=== PATIENT | female | born 1950 | race Caucasian/White ===

== ENCOUNTER 2020-01-22 14:41 | Outpatient (CLI) | payer MEDICARE, SELFPAY ==
--- NOTE | ~2020-01-22 | DEXA_ITS ---
Bone Density Report Name: Giselle Montoya Age: 69 Sex: Female Ethnicity: White Date of : 1950 Indication: postmenopausal; height loss; Referring Provider: Jyothi Schuler Study: Bone densitometry was performed. Exam Date: January 22, 2020 Accession number: [id number] Bone Density: Region BMD T-score Z-score Classification AP Spine (L1-L4) 1.328 2.6 4.5 Normal Femoral Neck (Left) 0.786 -0.6 1.1 Normal Total Hip (Left) 0.979 0.3 1.6 Normal Total Hip Bilateral Avg 0.940 0.0 1.3 Normal Femoral Neck (Right) 0.786 -0.6 1.1 Normal Total Hip (Right) 0.901 -0.3 1.0 Normal World Health Organization criteria for BMD impression classify patients as: Normal (T-score at or above -1.0), Osteopenia (T-score between -1.0 and -2.5), or Osteoporosis (T-score at or below -2.5). 10-year Fracture Risk: FRAX not reported because: All T-scores for Spine Total, Hip Total, Femoral Neck at or above -1.0 Clinical Information Provided by Patient: Has used the following medications: Calcium Patient maximum height was 68 Menopause Age: 52 No regular weight bearing exercise Drinks caffeinated beverages Onset of menses at age 16 Number of children 1 Impression: The patient has normal bone mass. Discussion: BONE DENSITY IS ABOVE THE MINIMUM DESIRABLE LEVEL AT ALL SKELETAL SITES TESTED. This patient?s bone mineral density is above the minimum desirable level (T-score -1.0 or better) at all sites measured. The patient should follow a healthful lifestyle (good nutrition with adequate calcium and vitamin D, and appropriate weight-bearing exercise). Follow-Up: Consider repeating this study in 5 years or sooner if there is some new clinical indication. Reported by: BHARAT on 01/22/2020 3:04:00 PM. Reviewed, dictated and finalized at location A.
--- NOTE | ~2020-01-22 | MM_ITS ---
EXAMINATION: MM screening mammo BI HISTORY: Screening mammogram TECHNIQUE: Craniocaudal and mediolateral oblique 3-D tomosynthesis images were obtained and synthetic 2-D images were generated. CAD analysis was submitted and interpreted. COMPARISON: Comparison to multiple prior studies sequentially, with oldest reviewed study dated 02/28. BREAST PARENCHYMAL COMPOSITION: Breast composed of scattered areas of fibroglandular density FINDINGS: There is no evidence of suspicious mass, calcification, or architectural distortion to sugg est malignancy in either breast. There has been no suspicious interval change. IMPRESSION: 1. No mammographic evidence of malignancy. 2. Recommend routine screening mammography in one year. BI-RADS Category 1: Negative Reviewed, dictated and finalized at location A.
== END 2020-01-22 14:42 | disposition home or self-care (01) ==
LOC: ANHIMG 14:44
PROVIDERS: PCP Internal Medicine; Visit Provider Nurse Practitioner
DX: Z12.31 Encounter for screening mammogram for malignant neoplasm of breast (principal); Z78.0 Asymptomatic menopausal state
CPT/HCPCS: 77067; 77080

== ENCOUNTER 2020-04-13 12:53 | Emergency (ER) | payer MEDICARE, SELFPAY ==
--- NOTE | ~2020-04-13 | CT_ITS ---
EXAMINATION: CT abdomen pelvis w con DATE: 04/13/2020 17:01 INDICATION: History of diverticulitis. TECHNIQUE: Computed tomography (CT) of the abdomen and pelvis was performed with 100 cc Omnipaque 350 intravenous contrast. The dose-length product was 470.70 mGy-cm. Automated exposure control and iter ative reconstruction technique were employed. COMPARISON: CT dated 03/01/2012 FINDINGS: There is acute diverticulitis descending colon with moderate surrounding phlegmonous change . No evidence for perforation or abscess. No free air. There is basilar atelectasis. Heart size normal. Small hiatal hernia. Status post appendectomy. Nonob structive bowel gas pattern. Gallbladder is present. Possible gallstones. Consider correlation with ultrasound. Small subcentimete r hypodensity of the left kidney, most likely benign cysts. Spleen, pancreas, adrenal glands and righ t kidney are unremarkable. Small fat-containing umbilical hernia. Moderate lower thoracic and lumbar spondylosis. There is atherosclerosis of the aorta without aneurysm. No lymphadenopathy. IMPRESSION: 1. Acute diverticulitis descending colon without perforation or abscess. There is moderate surroundin g phlegmonous change. Reviewed, dictated and finalized at location A. IMPRESSION: 1. Acute diverticulitis descending colon without perforation or abscess. There is moderate surrounding phlegmonous change.
[2020-04-13 13:14] VITALS: BP 170/68; PULSE 77; RESP 18; TEMP 36.6; O2SAT 100
[2020-04-13 13:30] LABS: Basophils Percent Auto 0.2 % (0.2-1.2); Eosinophils Absolute Auto 0.2 K/mm3 (0-0.3); Eosinophils Percent Auto 1.2 % (0-4.4); Hematocrit 31.6 % (37.0-47.0); Hemoglobin 10.5 g/dL (12.0-15.0); Immature Granulocyte Absolute 0.08 K/mm3 (0.00-0.031); Immature Granulocyte Percent A 0.6 % (0-0.5); Lymphocytes Absolute Auto 3.17 K/mm3 (0.9-3.2); Lymphocytes Percent Auto 22.6 % (18.3-44.2); Mean Corpuscular HGB Conc 33.2 g/dl (32-36); Mean Corpuscular Hemoglobin 28.3 pg (26-34); Mean Corpuscular Volume 85.2 fl (80-100); Monocytes Absolute Auto 1.4 K/mm3 (0.1-0.6); Monocytes Percent Auto 9.9 % (2.6-8.5); Neutrophils Absolute Auto 9.2 K/mm3 (1.3-6.7); Neutrophils Percent Auto 65.5 % (45.5-73.1); Platelet Count Result 244 k/mm3 (150-375); Red Blood Count 3.71 M/mm3 (4.2-5.4); Red Cell Distribution Width 14.6 % (11.5-14.5)
[2020-04-13 13:42] LABS: Alanine Aminotransferase 21 U/L (4-35); Albumin Level 4.1 g/dL (3.5-5.1); Alkaline Phosphatase 93 U/L (38-126); Anion Gap 6 mmol/L (8-16); Aspartate Amino Transferase 28 U/L (14-36); Blood Urea Nitrogen 13 mg/dL (7-17); Calcium 9.7 mg/dL (8.4-10.2); Carbon Dioxide 27 mmol/L (22-30); Chloride 100 mmol/L (98-107); Estimated CRCL calculation 63 ml/min; Estimated Glomerular Filt Rate > 60; Glucose 107 mg/dL (65-105); Lipase 73 U/L (23-300); Potassium 4.1 mmol/L (3.4-5.0); Sodium 133 mmol/L (137-145)
[2020-04-13 14:50] LABS: Add Urine Microscopic? NO; Appearance Urine Clear (Clear); Bilirubin Urine Negative (Negative); Blood Urine Negative (Negative); Color Urine Straw (Yellow); Glucose Urine UA Negative (Negative); Ketones Urine Negative (Negative); Leukocyte Esterase Ur Negative LEU/UL (Negative); Nitrate Urine Negative (Negative); Protein Urine Negative (Negative); Specific Grav Ur 1.008 (1.001-1.035); Urobilinogen Urine Negative mg/dL (<2.0)
--- NOTE | 2020-04-13 16:42 | ED.ABDPAIN ---
HPI - Abdominal Pain General Chief Complaint: Abdominal Pain Stated Complaint: flair of diverticulitis Time Seen by Provider: 04/13/20 16:22 Source: patient Mode of arrival: ambulatory Limitations: no limitations History of Present Illness HPI narrative: Patient is a 69-year-old female with a history of diverticulitis who presents for evaluation of left-sided abdominal pain. Patient reports a worsening 3-4 day history of left-sided abdominal pain and associated nausea. Pain is dull and aching in nature and feels similar to previous diverticulitis flares. She is not currently on any antibiotics. She denies fever or chills. She denies diarrhea, mucus or blood present in her stools. She has followed with a GI physician intermittently in [place], but is due for a colonoscopy and hasn't scheduled this yet. Related Data Home Medications Medication Instructions Recorded Confirmed amlodipine 2.5 mg tablet 2.5 mg PO DAILY 11/29/19 11/29/19 cholecalciferol (vitamin D3) 1,250 1,250 mcg PO .every other week cap 11/29/19 11/29/19 mcg (50,000 unit) capsule metformin 500 mg tablet 500 mg PO BID 11/29/19 11/29/19 fiber 04/13/20 niacin 1,000 mg PO HS 04/13/20 orlistat [Chilo] mg 04/13/20 Allergies Allergy/AdvReac Type Severity Reaction Status Date / Time No Known Allergies Allergy Unknown Verified 04/13/20 16:20 Review of Systems Review of Systems: Narrative: CONSTITUTIONAL: Denies fever CARDIOVASCULAR: Denies chest pain RESPIRATORY: Denies cough or dyspnea. GASTROINTESTINAL: Reports left lower quadrant abdominal pain SKIN: Denies rash MUSCULOSKELETAL: Denies back pain NEUROLOGIC: Denies headache [facility] Past Medical History Medical History (Updated 04/13/20 @ 17:15 by Denia Gil MD) Anemia, unspecified AVD (aortic valve disease) Essential (primary) hypertension Heart murmur Hypothyroidism, unspecified Type 2 diabetes mellitus without complication Family History Family History Father Family history of diabetes mellitus in first degree relative Family history of heart disease in male family member before age 55 Grandparent Family history of malignant neoplasm of breast Mother Family history of heart disease in male family member before age 55 Social History Social History Smoking status: Never smoker Alcohol intake: never Gender identity (if verbalized by the patient): Female Exam Narrative: Exam Narrative: GENERAL: Awake, alert, conversant HEAD: Normocephalic, atraumatic. EYES: PERRLA and EOMI. ENT: Nares clear, no rhinorrhea or epistaxis. Mucous membranes moist. NECK: Supple. CHEST: No respiratory distress, breathing even and non labored HEART: Regular rate, sinus rhythm ABDOMEN:Non distended, mild left lower quadrant tenderness, no rebound, no guarding EXTREMITIES: Normal range of motion. No edema. SKIN: Warm, dry, no rash. NEURO:No focal deficits. Alert and oriented x3 Course Vital Signs Vital signs: Vital Signs Temperature 36.6 C 04/13/20 13:14 Pulse Rate 77 04/13/20 13:14 Respiratory Rate 18 04/13/20 13:14 Blood Pressure 170/68 H 04/13/20 13:14 Pulse Oximetry 100 04/13/20 13:14 Temperature 36.6 C 04/13/20 13:14 Pulse Rate 77 04/13/20 13:14 Respiratory Rate 18 04/13/20 13:14 Blood Pressure 170/68 H 04/13/20 13:14 Pulse Oximetry 100 04/13/20 13:14 MDM - Abdominal Pain MDM Narrative Medical decision making narrative: Patient presenting for evaluation of left-sided abdominal pain that feels like previous flares of diverticulitis that she has had in the past. Patient denies fever, chills, vomiting, she has some had some mild nausea. She reports the pain is quite mild. Laboratory results show leukocytosis and CT scan shows evidence of diverticulitis without abscess or perforation. As patient is hemodynamically stable, tolerating oral in
[2020-04-13 17:32] VITALS: BP 153/71; PULSE 76; RESP 18; TEMP 36.9; O2SAT 100
== END 2020-04-13 17:34 | disposition home or self-care (01) ==
PROVIDERS: Family Medicine; Emergency Provider Emergency Medicine; PCP Internal Medicine
DX: K57.32 Diverticulitis of large intestine without perforation or abscess without bleeding (principal); D64.9 Anemia, unspecified; I35.8 Other nonrheumatic aortic valve disorders; I10 Essential (primary) hypertension; E03.9 Hypothyroidism, unspecified; E11.9 Type 2 diabetes mellitus without complications; Z79.84 Long term (current) use of oral hypoglycemic drugs
CPT/HCPCS: 36415; 74177; 80053; 81003; 83690; 85025; 99284; Q9967

== ENCOUNTER 2020-11-21 09:46 | Outpatient (CLI) | payer MEDICARE, SELFPAY | END 2020-11-21 09:47 | disposition home or self-care (01) | LOC: ANHCOVIDVC 09:46 | PROVIDERS: PCP Internal Medicine | DX: Z23 Encounter for immunization (principal) | CPT/HCPCS: 0001A; 91300 ==

== ENCOUNTER 2020-12-12 16:29 | Outpatient (CLI) | payer MEDICARE, SELFPAY | END 2020-12-12 16:30 | disposition home or self-care (01) | LOC: ANHCOVIDVC 16:29 | PROVIDERS: PCP Internal Medicine | DX: Z23 Encounter for immunization (principal) | CPT/HCPCS: 0002A; 91300 ==

== ENCOUNTER → 2021-01-23 10:09 | Outpatient (CLI) | payer MEDICARE, SELFPAY ==
--- NOTE | ~2021-01-23 | MM_ITS ---
EXAMINATION: MM screening maryellen BI w maxine HISTORY: Screening mammogram TECHNIQUE: Craniocaudal and mediolateral oblique 3-D tomosynthesis images were obtained and synthetic 2-D images were generated. CAD analysis was submitted and interpreted. COMPARISON: 01/22/2020, 04/27/2018, 04/07/2017 bilateral digital screening mammogram examinations BREAST PARENCHYMAL COMPOSITION: The breasts are almost entirely fatty. FINDINGS: There is no evidence of suspicious mass, calcification, or architectural distortion to sugg est malignancy in either breast. There has been no suspicious interval change. IMPRESSION: 1. No mammographic evidence of malignancy. 2. Recommend routine screening mammography in one year. BI-RADS Category 1: Negative Reviewed, dictated and finalized at location A.
== END ==
PROVIDERS: PCP Internal Medicine; Visit Provider Nurse Practitioner
DX: Z12.31 Encounter for screening mammogram for malignant neoplasm of breast (principal)
CPT/HCPCS: 77063; 77067

== ENCOUNTER → 2021-05-29 08:24 | Outpatient (CLI) | payer MEDICARE, SELFPAY ==
--- NOTE | ~2021-05-29 | XR_ITS ---
XR knee RT 3V DATE: 05/29/2021 09:09 INDICATION: Right knee pain TECHNIQUE: Salvo and standing AP and lateral views COMPARISON: None FINDINGS: There is diffuse osteopenia. There is mild periarticular spurring of the knee and prominent loss of medial compartment joint space, consistent with tricompartment osteoarthritis, most severe a t the medial compartment. No fracture or dislocation. Mild joint effusion is suggested. No periosteal reaction or bone destruction. No radiopaque intra-articular loose body or chondrocalcin osis. Arterial calcification is noted. 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
== END ==
PROVIDERS: PCP Internal Medicine; Visit Provider Internal Medicine
DX: M25.569 Pain in unspecified knee (principal); M17.11 Unilateral primary osteoarthritis, right knee; M85.861 Other specified disorders of bone density and structure, right lower leg
CPT/HCPCS: 73562

== ENCOUNTER 2021-08-22 10:05 | Emergency (ER) | payer OTHER, MEDICARE, SELFPAY ==
--- NOTE | ~2021-08-22 | XR_ITS ---
EXAMINATION: [id number] DATE: 08/22/2021 11:51 INDICATION: Right rib pain post fall TECHNIQUE: A frontal inspiratory view of the chest and 3 views of the right ribs were obtained. COMPARISON: CT abdomen pelvis dated 04/13/20 FINDINGS: Mild angulation of the cortex at the anterior tip of the right eighth rib without evident correlate o n the prior CT which is suspicious for fracture. No other lesions suspicious for fracture identified Unchanged mild linear discoid atelectasis/scarring at the lingula. No new airspace opacities, pulmona ry edema, pleural effusion or pneumothorax. Heart size is normal. Amplatz type ASD closure device. Sl ight 3 component curvature of the thoracic and lumbar spine with moderate spondylosis. IMPRESSION: 1. Possible nondisplaced anterior right eighth rib fracture. Correlate for point tenderness at this l ocation. 2. Chronic mild discoid atelectasis/scarring at the lingula. No acute cardiopulmonary disease. Reviewed, dictated and finalized at location B. [facility] [employer] [employer] IMPRESSION: 1. Possible nondisplaced anterior right eighth rib fracture. Correlate for poin t tenderness at this location. 2. Chronic mild discoid atelectasis/scarring at the lingula. No acute cardiopul monary disease.
--- NOTE | ~2021-08-22 | XR_ITS ---
EXAMINATION: XR elbow LT min 3V, XR forearm LT 2V DATE: 08/22/2021 11:50 INDICATION: Left elbow and forearm pain post fall TECHNIQUE: 1. Anteroposterior, two oblique and lateral views of the left elbow were obtained. 2. Anteroposterior and lateral views of the left forearm were obtained. COMPARISON: None. FINDINGS: There is an intra-articular fracture at the head of the proximal left radius with approximately 3 mm depression of the fracture fragment. Difficult to assess the degree of involvement of the articular s urface, likely <25%. Left elbow joint effusion is present. No other fractures identified. Severe oste oarthritis at the first carpometacarpal joint. Tiny enthesophytes at the medial and lateral humeral e picondyles. IMPRESSION: 1. 3 mm depression of an intra-articular fracture involving a small portion of the head of the proxim al left radius with secondary left elbow joint effusion. Reviewed, dictated and finalized at location B. RETE MASON IMPRESSION: 1. 3 mm depression of an intra-articular fracture involving a small portion of the head of the proximal left radius with secondary left elbow joint effusion.
[2021-08-22 10:51] VITALS: BP 170/93; PULSE 77; RESP 18; TEMP 36.3; O2SAT 100
--- NOTE | 2021-08-22 11:24 | ED.UPPEXIN ---
HPI - Extremity Injury (Upper) General Chief Complaint: Extremity Injury, Upper Stated Complaint: lt arm injury,rt side pain Time Seen by Provider: 08/22/21 11:24 Source: patient, RN notes reviewed and old records reviewed Mode of arrival: ambulatory Limitations: no limitations History of Present Illness HPI narrative: 70-year-old female who presents to [facility] with complaints of sustaining a fall this morning at work around 0615 at [employer]. Patient states she tripped on cart and fell forward onto arms and chest. Patient denies any loss of consciousness denies hitting her head. Patient reports inability to straighten left arm with pain to left elbow area.She also reports pain to right lateral lower chest along ribs from fall. Patient denies any shortness of breath lungs have breath in all lung schafer noted. MD complaint: injury to: left, elbow and forearm Onset (ago): hour(s) (at 0615 this morning) Other injuries: chest (Right rib area) Handedness: right Place: work Related Data Home Medications Medication Instructions Recorded Confirmed niacin 1,000 mg PO HS 04/13/20 08/22/21 orlistat [Chilo] 60 mg PO DAILY 04/13/20 08/22/21 Allergies Allergy/AdvReac Type Severity Reaction Status Date / Time No Known Allergies Allergy Unknown Verified 08/22/21 10:50 Review of Systems Review of Systems: CONSTITUTIONAL: Denies fever, chills, or sweats. EYES: Denies visual changes, redness, or discharge. ENT: Denies rhinorrhea, congestion, sore throat, or otalgia. CARDIOVASCULAR: positive for right chest pain lateral lower rib area, no palpitations, or edema. RESPIRATORY: Denies cough or dyspnea. GASTROINTESTINAL: Denies abdominal pain, nausea, vomiting, or diarrhea. GENITOURINARY: Denies dysuria or hematuria. SKIN: Denies rash or itching. MUSCULOSKELETAL: Denies back pain, positive for left elbow joint pain, or myalgia. NEUROLOGIC: Denies headache, numbness, or weakness. PSYCHIATRIC: Denies anxiety or depression. All systems reviewed & are unremarkable except as noted in HPI and below PMFSH Past Medical History Medical History (Updated 08/22/21 @ 12:54 by Denia Wagoner NP) Anemia, unspecified AVD (aortic valve disease) Essential (primary) hypertension Heart murmur Hypothyroidism, unspecified Type 2 diabetes mellitus without complication Surgical History Surgical History (Updated 08/22/21 @ 22:31 by Denia Wagoner NP) History of Amplatzer atrial septal defect closure History of appendectomy S/P removal of left ovary Family History Family History Father Family history of diabetes mellitus in first degree relative Family history of heart disease in male family member before age 55 Grandparent Family history of malignant neoplasm of breast Mother Family history of heart disease in male family member before age 55 Social History Social History (Updated 08/22/21 @ 22:31 by Denia Wagoner NP) Smoking status: Never smoker Second hand tobacco smoke exposure: No Alcohol intake: never Substance use: never Living arrangements: with family Gender identity (if verbalized by the patient): Female Comments At time of signature, agree with nursing past medical, surgical, social and family history. There is no relevant family history pertinent to the presenting complaint Exam Narrative: GENERAL: Well-appearing, well-nourished, and in mild acute distress. HEAD: Normocephalic, atraumatic. EYES: PERRLA and EOMI. ENT: Nares clear, no rhinorrhea or epistaxis. Mucous membranes moist.TM's normal throat pink with no lesions exudates or tonsil swelling. NECK: Supple.no lymphadenopathy CHEST: Clear to auscultation. No respiratory distress.SAO2 100% on room air, palpable tenderness to right anterior-lateral chest region along ribs HEART: Regular rate and rhythm. No murmur heard. Normal peripheral pulses. ABDOMEN: Soft, nontender, nondistended, normal activ
== END 2021-08-22 12:56 | disposition home or self-care (01) ==
PROVIDERS: Emergency Provider Registered Nurse; PCP Internal Medicine
DX: S52.122A Displaced fracture of head of left radius, initial encounter for closed fracture (principal); S22.31XA Fracture of one rib, right side, initial encounter for closed fracture; W18.09XA Striking against other object with subsequent fall, initial encounter; I10 Essential (primary) hypertension; R01.1 Cardiac murmur, unspecified; E03.9 Hypothyroidism, unspecified; E11.9 Type 2 diabetes mellitus without complications; I35.9 Nonrheumatic aortic valve disorder, unspecified
CPT/HCPCS: 29105; 71101; 73080; 73090; 99214; A4565; G0463

== ENCOUNTER 2021-12-12 12:22 | Emergency (ER) | payer OTHER, MEDICARE, SELFPAY ==
[2021-12-12 12:38] VITALS: BP 166/68; PULSE 69; RESP 18; TEMP 36.1; O2SAT 100
--- NOTE | 2021-12-12 13:39 | ED.HEATRA ---
HPI - Head Injury General Chief complaint: Fall Stated complaint: fall Time Seen by Provider: 12/12/21 12:29 Source: patient Mode of arrival: ambulatory Limitations: no limitations History of Present Illness HPI Narrative: 71-year-old female presents to [facility] with complaints of falling and hitting her head on concrete at work 2 hours ago. Patient reports that she tripped over a pallet and fell hitting her forehead on concrete. 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 Patient does take aspirin daily. Patient reports a 3 out of 10 headache. Patient denies dizziness, blurred vision or neurological changes. MD Complaint: head injury Onset (ago): hour(s) (2) Place: work Loss of Consciousness: no Location of injury: frontal Radiation: none Context: on aspirin Related Data Home Medications Medication Instructions Recorded Confirmed amlodipine 5 mg PO DAILY 12/12/21 12/12/21 aspirin 81 mg PO DAILY 12/12/21 12/12/21 carvedilol 25 mg PO BID 12/12/21 12/12/21 cholecalciferol (vitamin D3) 1,250 mcg PO WEEKLY 12/12/21 12/12/21 famotidine 20 mg PO DAILY 12/12/21 12/12/21 ferrous sulfate [FeroSul] 325 mg PO DAILY 12/12/21 12/12/21 hydrochlorothiazide 25 mg PO DAILY 12/12/21 12/12/21 levothyroxine [Euthyrox] 88 mcg PO DAILY 12/12/21 12/12/21 lisinopril 40 mg PO DAILY 12/12/21 12/12/21 metformin 500 mg PO TID 12/12/21 12/12/21 simvastatin 20 mg PO DAILY 12/12/21 12/12/21 Allergies Allergy/AdvReac Type Severity Reaction Status Date / Time No Known Allergies Allergy Unknown Verified 12/12/21 13:40 Review of Systems Constitutional: Constitutional: Denies chills, Denies fever(s) and Denies weakness Cardiovascular: Cardiovascular: Denies chest pain Respiratory: Respiratory: Denies cough, Denies dyspnea and Denies wheezing Gastrointestinal: Gastrointestinal: Denies abdominal pain, Denies diarrhea, Denies nausea and Denies vomiting Neurologic: Comments: Headache, fell and hit head today at work 2 hours ago Endocrine: Endocrine: Denies fatigue [facility] Past Medical History Medical History Anemia, unspecified Atrophy of quadriceps femoris muscle AVD (aortic valve disease) Constipation Degenerative joint disease of knee Diarrhea Essential (primary) hypertension Frequency of urination Heart murmur High cholesterol Hypothyroidism, unspecified Type 2 diabetes mellitus without complication Vomiting Surgical History Surgical History History of Amplatzer atrial septal defect closure History of appendectomy S/P removal of left ovary Family History Family History Father Family history of diabetes mellitus in first degree relative Family history of heart disease in male family member before age 55 Grandparent Family history of malignant neoplasm of breast Mother Family history of heart disease in male family member before age 55 Other Diabetes mellitus Heart disease High cholesterol Hypertension Social History Social History Second hand tobacco smoke exposure: No Alcohol intake: never Substance use: never Additional occupation/education comments: [employer] Gender identity (if verbalized by the patient): Female Comments At time of signature, I agree with nursing past medical, surgical, social and family history. There is no relevant family history pertinent to the presenting complaint. Exam Const: General: no acute distress Nutritional Appearance: well nourished Orientation/consciousness: patient oriented x3 Eyes: Conjunctivae: conjunctivae normal Pupils: Equal, round and reactive pupils present Direct Ophthalmoscopy: no photophobia Neck: Neck: normal visual inspection Resp:
== END 2021-12-12 14:02 | disposition short-term general hospital (02) ==
PROVIDERS: Emergency Provider Nurse Practitioner Family; PCP Internal Medicine
DX: S09.90XA Unspecified injury of head, initial encounter (principal); W18.00XA Striking against unspecified object with subsequent fall, initial encounter; S00.83XA Contusion of other part of head, initial encounter; I10 Essential (primary) hypertension; R01.1 Cardiac murmur, unspecified; E78.00 Pure hypercholesterolemia, unspecified; E03.9 Hypothyroidism, unspecified; E11.9 Type 2 diabetes mellitus without complications
CPT/HCPCS: 99212; G0463

== ENCOUNTER 2021-12-12 14:22 | Emergency (ER) | payer OTHER, MEDICARE, SELFPAY ==
--- NOTE | ~2021-12-12 | CT_ITS ---
EXAMINATION: CT brain wo con INDICATION: Head injury COMPARISON: None TECHNIQUE: Standard unenhanced head CT. The dose-length product (DLP) was 605.33 mGy-cm. The mA was a djusted according to patient size. Iterative reconstruction technique was employed. FINDINGS: There is a small left frontal scalp hematoma. There is no acute intraparenchymal hemorrhage . No evidence of mass lesion. No evidence of acute infarction. There is mild periventricular and subc ortical hypodensity probably related to small vessel ischemic disease. There is mild prominence of th e sulci and ventricles related to cerebral atrophy. Intracranial calcified cerebral atherosclerosis i s noted. There are no extra-axial collections. There is no mass effect or midline shift. The orbits a re unremarkable. The visualized sinuses and mastoid air cells are well aerated. IMPRESSION: 1. Small left frontal scalp hematoma without acute intracranial abnormality. 2. Age related findings. Reviewed, dictated and finalized at location B.
--- NOTE | ~2021-12-12 | CT_ITS ---
EXAMINATION: CT cervical spine wo con DATE: 12/12/2021 15:27 INDICATION: Head injury TECHNIQUE: Computed tomography (CT) of the cervical spine was performed without intravenous contrast. The dose-length product (DLP) was 351.51 mGy-cm. Automated exposure control and iterative reconstruc tion technique were employed. COMPARISON: None FINDINGS: There are 2 mm of anterolisthesis of C3 on C4 and 2 mm of retrolisthesis of C4 on C5. There is moderate loss of intervertebral disc space height from C4-5 through C7-T1. The vertebral body hei ghts are maintained. There is no fracture. The odontoid is intact. The prevertebral soft tissues are unremarkable. There is moderate to severe multilevel facet and uncovertebral joint osteoarthritis. IMPRESSION: 1. Moderate cervical spondylosis without acute findings. Reviewed, dictated and finalized at location B.
[2021-12-12 14:30] VITALS: BP 165/61; PULSE 67; RESP 18; TEMP 36.4; O2SAT 100
--- NOTE | 2021-12-12 14:51 | ED.FALL ---
HPI - Fall General Chief Complaint: Fall Stated Complaint: fall at work, struck head, on asa Time Seen by Provider: 12/12/21 14:33 History of Present Illness HPI Narrative: 71-year-old female presents emergency room for evaluation of a head injury. Patient states that she was at [facility], when she tripped over a pallet food striking her head on the floor. Patient denies LOC, altered mental status, nausea and vomiting. Patient denies neck pain. Related Data Home Medications Medication Instructions Recorded Confirmed amlodipine 5 mg PO DAILY 12/12/21 12/12/21 aspirin 81 mg PO DAILY 12/12/21 12/12/21 carvedilol 25 mg PO BID 12/12/21 12/12/21 cholecalciferol (vitamin D3) 1,250 mcg PO WEEKLY 12/12/21 12/12/21 famotidine 20 mg PO DAILY 12/12/21 12/12/21 ferrous sulfate [FeroSul] 325 mg PO DAILY 12/12/21 12/12/21 hydrochlorothiazide 25 mg PO DAILY 12/12/21 12/12/21 levothyroxine [Euthyrox] 88 mcg PO DAILY 12/12/21 12/12/21 lisinopril 40 mg PO DAILY 12/12/21 12/12/21 metformin 500 mg PO TID 12/12/21 12/12/21 simvastatin 20 mg PO DAILY 12/12/21 12/12/21 Allergies Allergy/AdvReac Type Severity Reaction Status Date / Time No Known Allergies Allergy Unknown Verified 12/12/21 13:40 Review of Systems Review of Systems: CONSTITUTIONAL: Denies fever, chills, or sweats. EYES: Denies visual changes, redness, or discharge. ENT: Denies rhinorrhea, congestion, sore throat, or otalgia. CARDIOVASCULAR: Denies chest pain, palpitations, or edema. RESPIRATORY: Denies cough or dyspnea. GASTROINTESTINAL: Denies abdominal pain, nausea, vomiting, or diarrhea. GENITOURINARY: Denies dysuria or hematuria. SKIN: Denies rash or itching. MUSCULOSKELETAL: Denies back pain, joint pain, or myalgia. NEUROLOGIC: Denies headache, numbness, dizziness, or weakness. PSYCHIATRIC: Denies anxiety or depression. [facility] Past Medical History Medical History Anemia, unspecified Atrophy of quadriceps femoris muscle AVD (aortic valve disease) Constipation Degenerative joint disease of knee Diarrhea Essential (primary) hypertension Frequency of urination Heart murmur High cholesterol Hypothyroidism, unspecified Type 2 diabetes mellitus without complication Vomiting Surgical History Surgical History History of Amplatzer atrial septal defect closure History of appendectomy S/P removal of left ovary Family History Family History Father Family history of diabetes mellitus in first degree relative Family history of heart disease in male family member before age 55 Grandparent Family history of malignant neoplasm of breast Mother Family history of heart disease in male family member before age 55 Other Diabetes mellitus Heart disease High cholesterol Hypertension Social History Social History Second hand tobacco smoke exposure: No Alcohol intake: never Substance use: never Additional occupation/education comments: [employer] Gender identity (if verbalized by the patient): Female Exam Narrative: GENERAL: Well-appearing, well-nourished, and in no acute distress. HEAD: Normocephalic, hematoma to forehead EYES: PERRLA and EOMI. ENT: Nares clear, no rhinorrhea or epistaxis. Mucous membranes moist. Oropharynx without tonsillar hypertrophy exudate or other lesions. Bilateral TMs pearly causey nonbulging NECK: No midline tenderness, no bony abnormalities, no step-offs, full range of motion CHEST: Clear to auscultation. No respiratory distress. No wheezes rales or rhonchi HEART: Regular rate and rhythm. No murmur heard. Normal peripheral pulses. ABDOMEN: Soft, nontender, nondistended, normal active bowel sounds. EXTREMITIES: Normal range of motion. No edema. SKIN: Warm, dry, no rash. NEURO: No focal
== END 2021-12-12 16:24 | disposition home or self-care (01) ==
LOC: ANHED 16:01
PROVIDERS: Emergency Provider Nurse Practitioner Family; PCP Internal Medicine
DX: S00.83XA Contusion of other part of head, initial encounter (principal); E11.9 Type 2 diabetes mellitus without complications; I10 Essential (primary) hypertension; E78.00 Pure hypercholesterolemia, unspecified; I35.8 Other nonrheumatic aortic valve disorders; E03.9 Hypothyroidism, unspecified; M17.10 Unilateral primary osteoarthritis, unspecified knee; Z86.2 Personal history of diseases of the blood and blood-forming organs and certain disorders involving the immune mechanism; Z79.84 Long term (current) use of oral hypoglycemic drugs; Z79.82 Long term (current) use of aspirin; W18.09XA Striking against other object with subsequent fall, initial encounter
CPT/HCPCS: 70450; 72125; 99284

== ENCOUNTER 2022-01-16 00:25 | Day surgery (SDC) | payer MEDICARE, SELFPAY ==
[2021-12-30 12:47] VITALS: BMI 26.6
[2022-01-16 09:06] VITALS: BP 140/57; PULSE 72; RESP 18; TEMP 36.4; O2SAT 100
[2022-01-16] MEDS: LACTATED RINGERS 1,000 ML 150 ML IV CONT (09:14)
--- NOTE | 2022-01-16 09:24 | WPDGICN ---
Assessment and Plan Assessment and plan (1) Screening for colon cancer: Code(s): Z12.11 - Encounter for screening for malignant neoplasm of colon Status: Acute Assessment and Plan: Patient presents today for neoplasia screening colonoscopy. She does have a prior history of colon polyps. Further recommendations will be given after endoscopy. (2) History of colon polyps: Code(s): Z86.010 - Personal history of colonic polyps Status: Acute Assessment and Plan: Patient presents today for colonoscopy as a history of adenomatous colon polyps in the past. Further recommendations will be given after endoscopy GI Consult Note Consult date/time: 01/16/22 09:24 Reason for consult: History of colon polyps. HPI: Giselle Montoya is a 71 year old female Referred for screening colonoscopy. Patient has a prior history of adenomatous colon polyps. She reports that her current weight appetite and bowel movements are normal. She denies abdominal pain. She has had no bleeding. Her last colonoscopy was 2014. She had a previous colonoscopy 2009. Patient reports that her paternal grandfather had colon polyps as well. She presents today for neoplasia screening. Review of Systems Review of Systems: Review of systems noncontributory. [facility] Past Medical History Medical History Anemia, unspecified Atrophy of quadriceps femoris muscle AVD (aortic valve disease) Constipation Degenerative joint disease of knee Diarrhea Essential (primary) hypertension Frequency of urination Heart murmur High cholesterol Hypothyroidism, unspecified Type 2 diabetes mellitus without complication Vomiting Surgical History Surgical History History of Amplatzer atrial septal defect closure History of appendectomy S/P removal of left ovary Family History Family History Father Family history of diabetes mellitus in first degree relative Family history of heart disease in male family member before age 55 Grandparent Family history of malignant neoplasm of breast Mother Family history of heart disease in male family member before age 55 Other Diabetes mellitus Heart disease High cholesterol Hypertension Social History Social History Smoking status: Never smoker Second hand tobacco smoke exposure: No Alcohol intake: never Substance use: never Substance use type: does not use Living arrangements: with family Additional occupation/education comments: [employer] Gender identity (if verbalized by the patient): Female Spiritual care concerns: No Meds Home Medications and Allergies Home Medications Medication Instructions Recorded Confirmed Type amlodipine 5 mg tablet 5 mg PO DAILY 12/12/21 12/30/21 History aspirin 81 mg tablet 81 mg PO DAILY 12/12/21 12/30/21 History carvedilol 25 mg tablet 25 mg PO BID 12/12/21 12/30/21 History cholecalciferol (vitamin D3) 1,250 1,250 mcg PO WEEKLY 12/12/21 12/30/21 History mcg (50,000 unit) capsule famotidine 20 mg tablet 20 mg PO DAILY 12/12/21 12/30/21 History ferrous sulfate 325 mg (65 mg 325 mg PO DAILY 12/12/21 12/30/21 History iron) tablet (FeroSul) hydrochlorothiazide 25 mg tablet 25 mg PO DAILY 12/12/21 12/30/21 History levothyroxine 88 mcg tablet 88 mcg PO DAILY 12/12/21 12/30/21 History (Euthyrox) lisinopril 40 mg tablet 40 mg PO DAILY 12/12/21 12/30/21 History metformin 500 mg tablet 500 mg PO BID 12/12/21 12/30/21 History simvastatin 20 mg tablet 20 mg PO DAILY 12/12/21 12/30/21 History Allergies Allergy/AdvReac Type Severity Reaction Status Date / Time No Known Allergies Allergy Unknown Verified 01/16/22 09:04 Vital Signs Vital Signs - 24 hr 01/16/22 09:06 Irwin
[2022-01-16 09:27] LABS: Glucose Point of Care 137 mg/dl (65-105)
--- NOTE | 2022-01-16 09:42 | WPDANESEPPF ---
Anes - Initial Pre Proc Eval Procedure: Operation Date: 01/16/22 10:00 Proposed Procedures p Screening Colonoscopy - Cb Garcia MD Date/Time: 01/16/22 09:42 Surgeon: Cb Garcia MD Pre Op Diagnosis: hx of colon polyps Patient Data Age: 71 Gender: F Height: 1.7 m Weight: 75.5 kg Last Vital Signs Temp 97.6 F 01/16/22 09:06 Pulse 72 01/16/22 09:06 Resp 18 01/16/22 09:06 BP 140/57 L 01/16/22 09:06 Pulse Ox 100 01/16/22 09:06 O2 Del Method Room Air 01/16/22 09:06 Allergies Allergy/AdvReac Type Severity Reaction Status Date / Time No Known Allergies Allergy Unknown Verified 01/16/22 09:04 Home Medications Medication Instructions Recorded Confirmed Type amlodipine 5 mg tablet 5 mg PO DAILY 12/12/21 12/30/21 History aspirin 81 mg tablet 81 mg PO DAILY 12/12/21 12/30/21 History carvedilol 25 mg tablet 25 mg PO BID 12/12/21 12/30/21 History cholecalciferol (vitamin D3) 1,250 1,250 mcg PO WEEKLY 12/12/21 12/30/21 History mcg (50,000 unit) capsule famotidine 20 mg tablet 20 mg PO DAILY 12/12/21 12/30/21 History ferrous sulfate 325 mg (65 mg 325 mg PO DAILY 12/12/21 12/30/21 History iron) tablet (FeroSul) hydrochlorothiazide 25 mg tablet 25 mg PO DAILY 12/12/21 12/30/21 History levothyroxine 88 mcg tablet 88 mcg PO DAILY 12/12/21 12/30/21 History (Euthyrox) lisinopril 40 mg tablet 40 mg PO DAILY 12/12/21 12/30/21 History metformin 500 mg tablet 500 mg PO BID 12/12/21 12/30/21 History simvastatin 20 mg tablet 20 mg PO DAILY 12/12/21 12/30/21 History Laboratory Tests 01/16/22 09:24 POC Capillary Glucose 137 mg/dl H mg/dl (65-105) Patient hx anesthesia problems: none Family hx anesthesia problems: none Results Review: All pre-operative results and documents have been reviewed as part of the pre-operative evaluation. PMFSH Past Medical History Medical History Anemia, unspecified Atrophy of quadriceps femoris muscle AVD (aortic valve disease) Constipation Degenerative joint disease of knee Diarrhea Essential (primary) hypertension Frequency of urination Heart murmur High cholesterol Hypothyroidism, unspecified Type 2 diabetes mellitus without complication Vomiting Surgical History Surgical History History of Amplatzer atrial septal defect closure History of appendectomy S/P removal of left ovary Family History Family History Father Family history of diabetes mellitus in first degree relative Family history of heart disease in male family member before age 55 Grandparent Family history of malignant neoplasm of breast Mother Family history of heart disease in male family member before age 55 Other Diabetes mellitus Heart disease High cholesterol Hypertension Social History Social History Smoking status: Never smoker Second hand tobacco smoke exposure: No Alcohol intake: never Substance use: never Substance use type: does not use Living arrangements: with family Additional occupation/education comments: [employer] Gender identity (if verbalized by the patient): Female Spiritual care concerns: No Anes - Eval Final PreProcedure Day of Procedure 01/16/22 09:42 Patient weight: normal Heart: regular rate and rhythm Lungs: clear to auscultation Airway: Mallampati scale class II Neurological: alert and oriented Last oral intake: >/= 8 hours ASA classification: III Emergent: no Anesthetic plan: proceed Anesthesia type and monitoring: general GIVS and standard monitoring Results Review: All pre-operative results and documents have been reviewed as part of the pre-operative evaluation. Informed Consent: The patient's anesthetic plan and its attendant risks and be
[2022-01-16 10:35] VITALS: BP 99/49; PULSE 67; RESP 20; O2SAT 98
[2022-01-16 10:45] VITALS: BP 141/57; PULSE 60; RESP 18; O2SAT 98
[2022-01-16 10:55] VITALS: BP 128/60; PULSE 65; RESP 18; O2SAT 100
== END 2022-01-16 11:02 | disposition home or self-care (01) ==
PROVIDERS: PCP Internal Medicine; Visit Provider Internal Medicine Gastroenterology
PROC: 0DJD8ZZ Inspection of Lower Intestinal Tract, Via Natural or Artificial Opening Endoscopic (ICD-10-PCS; CPT 45378; principal; 2022-01-16 10:00)
DX: Z12.11 Encounter for screening for malignant neoplasm of colon (principal); K63.5 Polyp of colon; K64.8 Other hemorrhoids; K57.30 Diverticulosis of large intestine without perforation or abscess without bleeding; Z79.84 Long term (current) use of oral hypoglycemic drugs; D64.9 Anemia, unspecified; I38 Endocarditis, valve unspecified; E78.00 Pure hypercholesterolemia, unspecified; E11.9 Type 2 diabetes mellitus without complications; M19.90 Unspecified osteoarthritis, unspecified site; I10 Essential (primary) hypertension
CPT/HCPCS: 45385; 82948; 88305; J2704; J7120

== ENCOUNTER → 2022-04-17 13:37 | Outpatient (CLI) | payer MEDICARE, SELFPAY ==
--- NOTE | ~2022-04-17 | MM_ITS ---
EXAMINATION: MM screening [facility] BI w maxine HISTORY: Screening mammogram TECHNIQUE: Craniocaudal and mediolateral oblique 3-D tomosynthesis images were obtained and synthetic 2-D images were generated. CAD analysis was submitted and interpreted. COMPARISON: 01/23/2021, 01/22/2020, 04/27/2018 BREAST PARENCHYMAL COMPOSITION: The breasts are almost entirely fatty. FINDINGS: There is no suspicious mass, calcification, or architectural distortion to suggest malignan cy in either breast. There has been no suspicious interval change. IMPRESSION: 1. No mammographic evidence of malignancy. 2. Recommend routine screening mammography in one year. BI-RADS Category 1: Negative Reviewed, dictated and finalized at location A.
== END ==
PROVIDERS: PCP Internal Medicine; Visit Provider Nurse Practitioner
DX: Z12.31 Encounter for screening mammogram for malignant neoplasm of breast (principal)
CPT/HCPCS: 77063; 77067

== ENCOUNTER → 2023-06-10 10:02 | Outpatient (CLI) | payer MEDICARE, SELFPAY ==
--- NOTE | ~2023-06-10 | DEXA_ITS ---
Bone Density Report Name: CHA CAMACHO Age: 72 Sex: Female Ethnicity: White Date of : 1950 Indication: postmenopausal; screening for osteoporosis; height loss; prior fracture; Referring Provider: MISSAEL, ANTONIO Study: Bone densitometry was performed. Exam Date: June 10, 2023 Accession number: [id number] Bone Density: Region BMD T-score Z-score Classification AP Spine (L1-L4) 1.358 2.8 5.0 Normal Femoral Neck (Left) 0.763 -0.8 1.1 Normal Total Hip (Left) 0.956 0.1 1.6 Normal Femoral Neck (Right) 0.794 -0.5 1.3 Normal Total Hip (Right) 0.878 -0.5 1.0 Normal Total Hip Mean 0.917 -0.2 1.3 Normal World Health Organization criteria for BMD impression classify patients as: Normal (T-score at or above -1.0), Osteopenia (T-score between -1.0 and -2.5), or Osteoporosis (T-score at or below -2.5). 10-year Fracture Risk: FRAX not reported because: All T-scores for Spine Total, Hip Total, Femoral Neck at or above -1.0 Previous Exams: Region Exam Age BMD T-score BMD Change BMD Change Date g/cm2 vs Baseline vs Previous AP Spine(L1-L4) 06/10/2023 72 1.358 2.8 0.136* 0.059* 03/25/2016 65 1.299 2.3 0.077* 0.019 01/25/2013 62 1.280 2.1 0.058* 0.020 10/30/2009 58 1.260 1.9 0.038* 0.038* 07/23/2004 53 1.223 1.6 Total Hip(Left) 06/10/2023 72 0.956 0.1 0.028* -0.003 03/25/2016 65 0.959 0.1 0.031* -0.001 01/25/2013 62 0.960 0.2 0.033* 0.000 10/30/2009 58 0.961 0.2 0.033* 0.033* 07/23/2004 53 0.928 -0.1 Total Hip(Right) 06/10/2023 72 0.878 -0.5 -0.053* -0.022 03/25/2016 65 0.900 -0.3 -0.031* -0.039* 01/25/2013 62 0.939 0.0 0.008 0.021 10/30/2009 58 0.918 -0.2 -0.013 -0.013 07/23/2004 53 0.931 -0.1 *Denotes significance at 95% confidence level, LSC for AP Spine = 0.022 g/cm2, LSC for Total Hip = 0.027 g/cm2 Clinical Information Provided by Patient: Has had a low trauma fracture Has used the following medications: Vitamin D, Calcium, MTV, Levothyroxine Patient maximum height was 67.5 Menopause Age: 60 No regular weight bearing exercise Drinks caffeinated beverages Onset of menses at age 15 Number of children 1 Impression: The patient has
--- NOTE | ~2023-06-10 | MM_ITS ---
EXAMINATION: MM screening [facility] BI w maxine HISTORY: Screening mammogram TECHNIQUE: Craniocaudal and mediolateral oblique 3-D tomosynthesis images were obtained and synthetic 2-D images were generated. CAD analysis was submitted and interpreted. COMPARISON: 04/17/2022, 01/23/2021, 01/22/2020 bilateral screening mammogram examinations BREAST PARENCHYMAL COMPOSITION: The breasts are almost entirely fatty. FINDINGS: There is no evidence of suspicious mass, calcification, or architectural distortion to sugg est malignancy in either breast. There has been no suspicious interval change. IMPRESSION: 1. No mammographic evidence of malignancy. 2. Recommend routine screening mammography in one year. BI-RADS Category 1: Negative Reviewed, dictated and finalized at location A.
== END ==
PROVIDERS: PCP Family Medicine; Visit Provider Nurse Practitioner
DX: Z12.31 Encounter for screening mammogram for malignant neoplasm of breast (principal); Z78.0 Asymptomatic menopausal state
CPT/HCPCS: 77063; 77067; 77080

== ENCOUNTER 2024-02-28 15:01 | Outpatient (CLI) | payer MEDICARE, SELFPAY ==
[2024-02-28 15:21] LABS: Basophils Absolute Auto 0.1 K/mm3 (0.0-0.1); Basophils Percent Auto 0.6 % (0.2-1.2); Eosinophils Absolute Auto 0.3 K/mm3 (0-0.3); Eosinophils Percent Auto 2.5 % (0-4.4); Hematocrit 30.6 % (37.0-47.0); Hemoglobin 9.8 g/dL (12.0-15.0); Immature Granulocyte Absolute 0.15 K/mm3 (0.00-0.031); Immature Granulocyte Percent A 1.5 % (0-0.5); Lymphocytes Absolute Auto 3.45 K/mm3 (0.9-3.2); Lymphocytes Percent Auto 34.9 % (18.3-44.2); Mean Corpuscular Hemoglobin 26.6 pg (26-34); Mean Corpuscular Volume 83.2 fl (80-100); Monocytes Absolute Auto 1.1 K/mm3 (0.1-0.6); Monocytes Percent Auto 10.7 % (2.6-8.5); Neutrophils Absolute Auto 4.9 K/mm3 (1.3-6.7); Neutrophils Percent Auto 49.8 % (45.5-73.1); Platelet Count Result 326 k/mm3 (150-375); Red Blood Count 3.68 M/mm3 (4.2-5.4); Red Cell Distribution Width 15.5 % (11.5-14.5); White Blood Count 9.9 K/mm3 (4.5-10.0)
[2024-02-28 16:55] LABS: Alanine Aminotransferase 51 U/L (6-35); Albumin Level 4.6 g/dL (3.5-5.1); Alkaline Phosphatase 170 U/L (38-126); Anion Gap 11 mmol/L (4-12); Aspartate Amino Transferase 44 U/L (14-36); Bilirubin,Total 0.5 mg/dL (0.2-1.3); Blood Urea Nitrogen 26 mg/dL (7-17); Calcium 10.3 mg/dL (8.4-10.2); Carbon Dioxide 28 mmol/L (22-30); Chloride 90 mmol/L (98-107); Estimated Glomerular Filt Rate > 60; Glucose 85 mg/dL (65-110); Lactate Dehydrogenase 180 U/L (120-246); Potassium 4.1 mmol/L (3.4-5.0); Sodium 129 mmol/L (137-145)
[2024-02-28 17:05] LABS: Iron 38 ug/dL (37-170)
[2024-02-28 17:22] LABS: Percent Iron Saturation 12 % (20-50)
[2024-02-28 23:34] LABS: Folic Acid > 20.0 ng/mL (2.76->20)
[2024-03-02 11:25] LABS: Methylmalonic Acid 293 nmol/L (69-390)
== END 2024-02-28 15:02 | disposition home or self-care (01) ==
LOC: ANHLAB 15:04
PROVIDERS: PCP Family Medicine; Visit Provider Nurse Practitioner Family
DX: D64.9 Anemia, unspecified (principal)
CPT/HCPCS: 36415; 80053; 82607; 82728; 82746; 83540; 83550; 83615; 83921; 84238; 85025

== ENCOUNTER 2024-04-02 10:09 | Emergency (ER) | payer MEDICARE, SELFPAY ==
--- NOTE | 2024-04-02 10:17 | ED.URI ---
HPI - URI/Sore Throat General Chief Complaint: Upper Respiratory Infection Stated Complaint: Cold symptoms Time Seen by Provider: 04/02/24 11:11 Source: patient Mode of arrival: ambulatory Limitations: no limitations History of Present Illness HPI Narrative: 73-year-old female presents with concern of for 5 day history of general malaise, chills, decreased appetite, decreased activity. Reports she has had diarrhea today. She reports she has not been eating very well or drinking very much. She denies taking any medications for her symptoms. Reports she works at a [employer] MD elicited complaint: other (Decreased appetite, diarrhea, general malaise) Related Data Home Medications Medication Instructions Recorded Confirmed aspirin 81 mg tablet 81 mg PO DAILY 12/12/21 04/02/24 Allergies Allergy/AdvReac Type Severity Reaction Status Date / Time No Known Allergies Allergy Unknown Verified 04/02/24 10:33 Review of Systems Review of Systems: CONSTITUTIONAL: Reports malaise, chills, fatigue EYES: Denies visual changes, redness, or discharge. ENT: Denies rhinorrhea, congestion, sinus pain, otalgia or sore throat. CARDIOVASCULAR: Denies chest pain, palpitations, or edema. RESPIRATORY: Denies cough or dyspnea. GASTROINTESTINAL: Denies abdominal pain, nausea, vomiting. Reports decreased appetite, decreased oral intake, diarrhea GENITOURINARY: Reports dysuria. Denies urgency, frequency, hematuria. SKIN: Denies rash or itching. MUSCULOSKELETAL: Reports myalgia. Reports low back pain NEUROLOGIC: Denies numbness, weakness, or headache. All systems reviewed & are unremarkable except as noted in HPI and below PMFSH Past Medical History Medical History Anemia, unspecified Atrophy of quadriceps femoris muscle AVD (aortic valve disease) Constipation Degenerative joint disease of knee Diarrhea Effusion of knee joint right Essential (primary) hypertension Frequency of urination Heart murmur High cholesterol Hypothyroidism, unspecified Right knee DJD Type 2 diabetes mellitus without complication Valgus deformity, not elsewhere classified, right knee Vomiting Surgical History Surgical History History of Amplatzer atrial septal defect closure History of appendectomy S/P removal of left ovary Family History Family History Father Family history of diabetes mellitus in first degree relative Family history of heart disease in male family member before age 55 Grandparent Family history of malignant neoplasm of breast Mother Family history of heart disease in male family member before age 55 Other Diabetes mellitus Heart disease High cholesterol Hypertension Social History Social History Smoking status: Never smoker Second hand tobacco smoke exposure: No Alcohol intake: never Substance use: never Substance use type: does not use Lack of Transportation: No Lack of Food: Never True Current Housing: I Have Housing Concerned About Future Housing: No Difficulty Paying Gas/Electric Bills: No Difficulty Paying for Meds: No Currently Unemployed: No Education: High School Diploma/GED Difficulty w/ Childcare or Family Care: No Living arrangements: with family Occupation/Education: occupation Additional occupation/education comments: [employer] Gender identity (if verbalized by the patient): Female Spiritual care concerns: No Comments At time of signature, agree with nursing past medical, surgical, social and family history. There is no relevant family history pertinent to the presenting complaint Exam Narrative: GENERAL: Well-appearing, well-nourished, and in no acute distress. HEAD: Normocephalic, atraumatic. EYES: PERRLA, scl
[2024-04-02 10:23] VITALS: BP 135/53; PULSE 86; RESP 18; TEMP 37; O2SAT 100
[2024-04-02 11:27] LABS: EDINFLUASCREEN Negative; EDINFLUBSCREEN Negative
[2024-04-02 11:27] LABS: EDUAAPPEAR Clear; EDUABILI 1+; EDUABLOOD Trace; EDUACOLOR1 Yellow; EDUAGLUCOSE Negative; EDUAKETONE 1+; EDUALEUKO 1+; EDUANITRATE Negative; EDUAPH 5.5; EDUAPROTEIN 2+; EDUASPGRAVITY 1.015
== END 2024-04-02 11:30 | disposition home or self-care (01) ==
PROVIDERS: Emergency Provider Nurse Practitioner; PCP Family Medicine
DX: N39.0 Urinary tract infection, site not specified (principal); Z20.822 Contact with and (suspected) exposure to COVID-19; I10 Essential (primary) hypertension; R01.1 Cardiac murmur, unspecified; E78.00 Pure hypercholesterolemia, unspecified; E03.9 Hypothyroidism, unspecified; M17.11 Unilateral primary osteoarthritis, right knee; E11.9 Type 2 diabetes mellitus without complications; Z79.82 Long term (current) use of aspirin
CPT/HCPCS: 81003; 87086; 87088; 87426; 87804; 99213; G0463

== ENCOUNTER 2024-06-07 13:40 | Outpatient (CLI) | payer MEDICARE, SELFPAY ==
[2024-06-07 13:58] LABS: Basophils Absolute Auto 0.1 K/mm3 (0.0-0.1); Basophils Percent Auto 0.6 % (0.2-1.2); Eosinophils Absolute Auto 0.3 K/mm3 (0-0.3); Hemoglobin 9.8 g/dL (12.0-15.0); Immature Granulocyte Absolute 0.15 K/mm3 (0.00-0.031); Immature Granulocyte Percent A 1.6 % (0-0.5); Lymphocytes Absolute Auto 2.84 K/mm3 (0.9-3.2); Lymphocytes Percent Auto 29.8 % (18.3-44.2); Mean Corpuscular HGB Conc 32.7 g/dl (32-36); Mean Corpuscular Hemoglobin 27.8 pg (26-34); Mean Platelet Volume 9.2 fl (7.4-10.4); Monocytes Absolute Auto 1.2 K/mm3 (0.1-0.6); Monocytes Percent Auto 12.6 % (2.6-8.5); Neutrophils Percent Auto 52.4 % (45.5-73.1); Platelet Count Result 309 k/mm3 (150-375); Red Blood Count 3.53 M/mm3 (4.2-5.4); Red Cell Distribution Width 16.2 % (11.5-14.5); White Blood Count 9.5 K/mm3 (4.5-10.0)
[2024-06-07 19:28] LABS: Iron 33 ug/dL (37-170)
[2024-06-07 19:37] LABS: Percent Iron Saturation 11 % (20-50)
[2024-06-07 19:45] LABS: Alanine Aminotransferase 52 U/L (6-35); Albumin Level 4.2 g/dL (3.5-5.1); Alkaline Phosphatase 195 U/L (38-126); Anion Gap 9 mmol/L (4-12); Aspartate Amino Transferase 54 U/L (14-36); Bilirubin,Total 0.7 mg/dL (0.2-1.3); Blood Urea Nitrogen 17 mg/dL (7-17); Calcium 9.9 mg/dL (8.4-10.2); Carbon Dioxide 26 mmol/L (22-30); Chloride 92 mmol/L (98-107); Estimated Glomerular Filt Rate > 60; Glucose 83 mg/dL (65-110); Potassium 4.5 mmol/L (3.4-5.0); Sodium 127 mmol/L (137-145)
[2024-06-07 21:23] LABS: Folic Acid > 20.0 ng/mL (2.76->20)
== END 2024-06-07 13:41 | disposition home or self-care (01) ==
LOC: ANHLAB 13:41
PROVIDERS: PCP Family Medicine; Visit Provider Internal Medicine Hematology & Oncology
DX: D64.9 Anemia, unspecified (principal)
CPT/HCPCS: 36415; 80053; 82607; 82728; 82746; 83540; 83550; 85025

== ENCOUNTER 2024-08-03 08:58 | Outpatient (CLI) | payer MEDICARE, SELFPAY ==
[2024-08-03 09:24] LABS: Hemoglobin 10.3 g/dL (12.0-15.0); Mean Corpuscular HGB Conc 32.2 g/dl (32-36); Mean Corpuscular Hemoglobin 28.1 pg (26-34); Mean Corpuscular Volume 87.4 fl (80-100); Mean Platelet Volume 8.9 fl (7.4-10.4); Platelet Count Result 309 k/mm3 (150-375); Red Blood Count 3.66 M/mm3 (4.2-5.4); Red Cell Distribution Width 16.3 % (11.5-14.5); White Blood Count 8.5 K/mm3 (4.5-10.0)
[2024-08-03 10:42] LABS: Alanine Aminotransferase 72 U/L (6-35); Albumin Level 3.9 g/dL (3.5-5.1); Alkaline Phosphatase 307 U/L (38-126); Anion Gap 6 mmol/L (4-12); Aspartate Amino Transferase 74 U/L (14-36); Bilirubin,Total 0.6 mg/dL (0.2-1.3); Blood Urea Nitrogen 19 mg/dL (7-17); Calcium 9.9 mg/dL (8.4-10.2); Carbon Dioxide 27 mmol/L (22-30); Chloride 100 mmol/L (98-107); Cholesterol 147 mg/dL (0-200); Estimated Glomerular Filt Rate > 60; Glucose 120 mg/dL (65-110); HDL Direct 59 mg/dL; Iron 42 ug/dL (37-170); Potassium 4.6 mmol/L (3.4-5.0); Sodium 133 mmol/L (137-145); Triglycerides 75 mg/dL (<150)
[2024-08-03 10:52] LABS: Percent Iron Saturation 16 % (20-50)
[2024-08-03 10:53] LABS: LDL Cholesterol Direct 42 mg/dL
[2024-08-03 10:59] LABS: Free T4 Free Thyroxine 1.63 ng/dL (0.78-2.19)
[2024-08-03 11:04] LABS: Hemoglobin A1C 5.8 % (<5.7)
== END 2024-08-03 08:59 | disposition home or self-care (01) ==
PROVIDERS: PCP Nurse Practitioner; Visit Provider Internal Medicine Hematology & Oncology
DX: D64.9 Anemia, unspecified (principal); E03.9 Hypothyroidism, unspecified; E78.5 Hyperlipidemia, unspecified; E11.9 Type 2 diabetes mellitus without complications
CPT/HCPCS: 36415; 80053; 80061; 82728; 83036; 83540; 83550; 84439; 84443; 85027

== ENCOUNTER 2024-08-17 08:23 | Outpatient (CLI) | payer MEDICARE, SELFPAY ==
--- NOTE | ~2024-08-17 | US_ITS ---
EXAM: ABDOMEN ULTRASOUND HISTORY: Elevated liver enzymes COMPARISON: 04/13/2020 FINDINGS: LIVER: The liver is unremarkable in echogenicity and size measuring 17cm in longitudinal dimension. The portal vein is patent demonstrating hepatopedal flow GALLBLADDER: No stones are identified within the gallbladder. No gallbladder wall thickening or pericholecystic fluid. BILE DUCTS: Common bile duct measures 3.7mm. PANCREAS: Limited evaluation of the pancreas secondary to overlying bowel gas SPLEEN: The spleen is unremarkable in echogenicity and size measuring 11cm in longitudinal dimension. RIGHT KIDNEY: 10 cm. In length. No hydronephrosis or bulky renal calculi. LEFT KIDNEY: 11cm in length. No hydronephrosis or renal calculi. VASCULATURE : The abdominal aorta is nonaneurysmal. The IVC is patent. IMPRESSION: Unremarkable sonographic evaluation of the abdomen, as detailed above. Evaluation of the pancreas is limited by overlying bowel gas. Reviewed, dictated and finalized at location A. TECHNICIAN
== END 2024-08-17 08:24 | disposition home or self-care (01) ==
PROVIDERS: PCP Nurse Practitioner; Visit Provider Internal Medicine Hematology & Oncology
DX: R74.8 Abnormal levels of other serum enzymes (principal)
CPT/HCPCS: 76700

== ENCOUNTER 2024-08-23 12:56 | Outpatient (CLI) | payer MEDICARE, SELFPAY ==
[2024-08-23 13:15] LABS: Hematocrit 30.5 % (37.0-47.0); Mean Corpuscular HGB Conc 32.8 g/dl (32-36); Mean Corpuscular Hemoglobin 28.7 pg (26-34); Mean Corpuscular Volume 87.6 fl (80-100); Mean Platelet Volume 9.4 fl (7.4-10.4); Platelet Count Result 306 k/mm3 (150-375); Red Blood Count 3.48 M/mm3 (4.2-5.4); Red Cell Distribution Width 15.9 % (11.5-14.5); White Blood Count 9.1 K/mm3 (4.5-10.0)
[2024-08-23 19:05] LABS: Iron 54 ug/dL (37-170)
[2024-08-23 19:12] LABS: Percent Iron Saturation 21 % (20-50)
== END 2024-08-23 12:57 | disposition home or self-care (01) ==
LOC: ANHLAB 12:59
PROVIDERS: PCP Nurse Practitioner; Visit Provider Internal Medicine Hematology & Oncology
DX: D64.9 Anemia, unspecified (principal)
CPT/HCPCS: 36415; 82728; 83540; 83550; 85027

== ENCOUNTER 2024-10-26 13:19 | Outpatient (CLI) | payer MEDICARE, SELFPAY ==
--- OUTSIDE RECORDS SUMMARY | 2024-10-26 15:00 | XMS_ITS | Clinical Summary ---
Author Organization [facility] Radha Soto Address [address] [place] [address] Care Team Providers Care Shot Polisher And Inspector Name Role Phone Miguel A Angelo Primary Care Provider [phone] Allergies No known active allergies Medications calcium carbonate (calcium as carbonate) 648 mg (260 mg elemental) Tablet Take 600 mg by mouth. Active garlic 1,000 mg Capsule Take 1,000 mg by mouth. Active meloxicam (MOBIC) 15 mg tablet Take 15 mg by mouth daily. Active famotidine (PEPCID) 20 mg tablet Take 20 mg by mouth 2 times daily. Active CALCIUM CARBONATE-VITAM IN D3 ORAL Take 1.25 mg by mouth. Monthly Active hydroCHLOROthia zide 25 mg tablet Take 25 mg by mouth daily. Active lisinopriL (PRINIVIL) 40 mg tablet Take 40 mg by mouth daily. Active metFORMIN (GLUCOPHAGE) 500 mg tablet Take 500 mg by mouth 2 times daily with meals. Active carvediloL (COREG) 25 mg tablet Take 25 mg by mouth 2 times daily with meals. Active Saccharomyces boulardii (FLORASTOR) 250 mg Capsule Take by mouth. Active aspirin (ECOTRIN EC) 81 mg Tablet, Delayed Release (E.C.) Take 81 mg by mouth daily. Active levothyroxine 88 mcg tablet Take 88 mcg by mouth daily in the morning. Active simvastatin (ZOCOR) 20 mg tablet Take 20 mg by mouth daily with supper. Active amLODIPine (NORVASC) 5 mg tablet Take 5 mg by mouth daily. Active niacin (NIACOR) 500 mg tablet Take 500 mg by mouth 2 times daily. Active ferrous sulfate 325 mg (65 mg iron) tablet Take 1 Tablet (325 mg) by mouth daily. 180 Tablet 3 03/07/2024 Active Active Problems No known active problems Encounters Date Type Department Care Team Description 10/21/2024 External Device Data STL ABSTRACTION Provider, Abstract 10/20/2024 External Device Data [facility] ABSTRACTION Provider, Abstract 10/17/2024 External Device Data [facility] ABSTRACTION Provider, Abstract 10/03/2024 External Device Data [facility] ABSTRACTION Provider, Abstract 09/07/2024 Abstract [facility] Oncology and Hematology - [place] [address] [place] [address] Charles Mares MD 09/07/2024 External Device Data [facility] ABSTRACTION Provider, Abstract 09/06/2024 External Device Data [facility] ABSTRACTION Provider, Abstract 09/06/2024 Telephone [facility] Oncology and Hematology [facility] [address] [place] [address] Charles Mares MD Surgical Clearance 09/05/2024 External Device Data ST[facility] ABSTRACTION Provider, Abstract 08/29/2024 External Device Data [facility] ABSTRACTION Provider, Abstract 08/28/2024 Orders Only [facility] Oncology and Hematology [place] [address] [place] [address] Charles Mares MD 08/24/2024 10:00 AM MEMBER SERVICE SPECIALIST Office Visit [facility] Oncology and Hematology - [place] [address] [place] [address] Charles Mares MD Chronic anemia (Primary Dx) 08/24/2024 Orders Only [facility] Oncology and Hematology - [place] [address] [place] [address] Charles Mares MD 08/04/2024 Orders Only [facility] - [place] [address] [place] [address] Scanning, Provider from Last 3 Months Family History Medical History Relation Name Comments No Known Problems Brother No Known Problems Child Diabetes Father Heart Disease Father Heart Disease Mother Relation Name Status Comments Brother Child Alive Father Mother Social History Tobacco Use Types Packs/Day Years Used Date Smoking Tobacco: Never Smokeless Tobacco: Never Alcohol Use Standard Drinks/Week Comments Never 0 (1 standard drink = 0.6 oz pur e alcohol) Comments Unknown Sex and Gender Information Value Date Recorded Sex Assigned at Not on file Legal Sex Female 1:33 PM CDT Gender Identity Not on file Sexual Orientation Not on file Last Filed Vital Signs Vital Sign Reading Time Taken Comments Blood Pressure 167/88 08/24/2024 9:47 AM MEMBER SERVICE SPECIALIST Pulse 64 08/24/2024 9:45 AM MEMBER SERVICE SPECIALIST Temperature 36.3 C (97.4 F) 08/24/2024 9:45 AM MEMBER SERVICE SPECIALIST Respiratory Rate 15 08/24/2024 9:45 AM MEMBER SERVICE SPECIALIST Oxygen Saturation 98% 08/24/2024 9:45 AM MEMBER SERVICE SPECIALIST Inhaled Oxygen Concentration - - Weight 66.7 kg (147 lb) 08/24/2024 9:45 AM MEMBER SERVICE SPECIALIST Height 170.2 cm (5' 7 ) 02/28/2024 2:17 PM CDT Body Mass Index 23.02 02/28/2024 2:17 PM CDT Plan of Treatment Upcoming Encounters Date Type Department Care Team (Late st Contact Info) Description 12/28/2024 11:30 AM CDT Office Visit [facility] Oncology and Hematology [facility] [address] [place] [address] [address] Charles Mares MD [address] [facility] [address] [place] [address] Health Maintenance Due Date Last Done Comments DTAP/TDAP/TD VACCINES (1 - Tdap) 11/28/1971 BREAST CANCER SCREENING 1992 COLORECTAL SCREENING 1997 Colorectal Cancer Screening 1997 FIT-DNA Q 3 years 1997 FIT/FOBT Q 1 year 1997 Flex Sig/CT Colonography Q 5 years 1997 PNEUMOCOCCAL VACCINE 50+ YEARS (1 of 1 - PCV) 11/28/19 03 ZOSTER VACCINE (1 of 2) 2002 OSTEOPOROSIS SCREENING 2017 INFLUENZA VACCINE (#1) 2024 [place] ([place]) Prev entative Visit/Annual Wellness Visit 08/16/2024 RSV VACCINE (60+ or ) (1 - 1-dose 75+ series) 11/28/2027 Procedures Procedure Name Priority Date/Time Associated Diagnosis Comments IRON, TIBC, AND PERCENT SATURATION Routine 08/23/2024 12:51 PM MEMBER SERVICE SPECIALIST CBC WITH AUTODIFFERENTIAL Routine 2024 11:52 AM MEMBER SERVICE SPECIALIST US ABDOMEN COMPLETE Routine 08/17/2024 1 2:43 PM MEMBER SERVICE SPECIALIST IRON LEVEL Routine 08/03/2024 8:33 AM MEMBER SERVICE SPECIALIST COMPREHENSIVE METABOLIC PANEL Routine 08/03/2024 8:22 AM MEMBER SERVICE SPECIALIST from Last 3 Months Results * IRON, TIBC, AND PERCENT SATURATION (08/23/2024 12:51 PM MEMBER SERVICE SPECIALIST) Blood us Charles Mares MD CHEMISTRY ORDERABLES Final Resu lt * CBC WITH AUTODIFFERENTIAL (08/23/2024 11:52 AM MEMBER SERVICE SPECIALIST) Blood Charles Mares MD HEMATOLOGY ORDERABLES Final Res ult * US ABDOMEN COMPLETE (08/17/2024 12:43 PM MEMBER SERVICE SPECIALIST) Anatomical Region Laterality Modality Abdomen Other us Charles Mares MD US ORDERABLES Final Result * IRON LEVEL (08/03/2024 8:33 AM MEMBER SERVICE SPECIALIST) Blood us Charles Mares MD CHEMISTRY ORDERABLES Final Resu lt * COMPREHENSIVE METABOLIC PANEL (08/03/2024 8:22 AM MEMBER SERVICE SPECIALIST) Blood Provider Scanning CHEMISTRY ORDERABLES Final Res ult from Last 3 Months Insurance [facility] [id number] Care Teams Shot Polisher And Inspector Relationship Specialty Start Date End Date Miguel A Angelo DO [address] [facility] [address] [place] [address] PCP - General Internal Medicine 06/08/24
[2024-10-26 15:38] LABS: Basophils Absolute Auto 0.1 K/mm3 (0.0-0.1); Basophils Percent Auto 0.7 % (0.2-1.2); Eosinophils Absolute Auto 0.3 K/mm3 (0-0.3); Eosinophils Percent Auto 3.5 % (0-4.4); Hematocrit 30.2 % (37.0-47.0); Immature Granulocyte Absolute 0.16 K/mm3 (0.00-0.031); Immature Granulocyte Percent A 1.9 % (0-0.5); Lymphocytes Absolute Auto 2.71 K/mm3 (0.9-3.2); Mean Corpuscular HGB Conc 33.1 g/dl (32-36); Mean Corpuscular Hemoglobin 29.7 pg (26-34); Mean Corpuscular Volume 89.6 fl (80-100); Mean Platelet Volume 9.6 fl (7.4-10.4); Monocytes Absolute Auto 1.1 K/mm3 (0.1-0.6); Monocytes Percent Auto 13.4 % (2.6-8.5); Neutrophils Absolute Auto 3.9 K/mm3 (1.3-6.7); Neutrophils Percent Auto 47.5 % (45.5-73.1); Platelet Count Result 297 k/mm3 (150-375); Red Blood Count 3.37 M/mm3 (4.2-5.4); Red Cell Distribution Width 14.4 % (11.5-14.5); White Blood Count 8.2 K/mm3 (4.5-10.0)
[2024-10-26 15:40] LABS: Anion Gap 10 mmol/L (4-12); Blood Urea Nitrogen 16 mg/dL (7-17); Calcium 9.2 mg/dL (8.4-10.2); Carbon Dioxide 26 mmol/L (22-30); Chloride 93 mmol/L (98-107); Estimated Glomerular Filt Rate > 60; Glucose 109 mg/dL (65-110); Potassium 3.4 mmol/L (3.4-5.0); Sodium 129 mmol/L (137-145)
[2024-10-26 15:56] LABS: Add Urine Microscopic? NO; Appearance Urine Clear (Clear); Bilirubin Urine Negative (Negative); Blood Urine Negative (Negative); Color Urine Yellow (Yellow); Glucose Urine UA Negative (Negative); Ketones Urine Negative (Negative); Leukocyte Esterase Ur Negative LEU/UL (Negative); Nitrate Urine Negative (Negative); Protein Urine Negative (Negative); Specific Grav Ur 1.008 (1.001-1.035); Urobilinogen Urine 0.2 mg/dL (<2.0); pH Urine 7.5 (5.0-9.0)
[2024-10-26 15:59] LABS: Prothrombin Time 13.5 Seconds (11.1-14.7)
[2024-10-26 16:00] LABS: Partial Thromboplastin Time 34.8 Seconds (22.3-36.8)
[2024-10-26 16:45] LABS: MRSA (PCR) NOT DETECTED (NOT DETECTE)
[2024-10-26 17:08] LABS: Urine Cotinine NEGATIVE
[2024-10-26 17:50] LABS: Hemoglobin A1C 5.5 % (<5.7)
== END 2024-10-26 13:20 | disposition home or self-care (01) ==
PROVIDERS: PCP Internal Medicine; Visit Provider Orthopaedic Surgery
DX: Z01.812 Encounter for preprocedural laboratory examination (principal); M17.11 Unilateral primary osteoarthritis, right knee
CPT/HCPCS: 80048; 80307; 81003; 82040; 83036; 85025; 85610; 85730; 86850; 86900; 86901; 87641

== ENCOUNTER 2024-11-07 18:37 | Day surgery (SDC) | payer MEDICARE, SELFPAY ==
--- NOTE | 2024-10-26 13:58 | PC.NURSE ---
Report to the Outpatient Waiting Room, entrance under the green pavilion located off [facility], at time ___10 AM____ on date _11/07/24 . Planned Procedure Time: __1200 NOON .? Time changes happen often and if your time is changed the preop area will call you the afternoon before. - You and your visitor will be asked to self-screen and do not enter if you have any COVID symptoms. Please call surgeon if you need to reschedule. - A mask is optional within the hospital at this time. Patients may have clear liquids (water, carbonated beverages, clear teas, apple juice) until 3 hours prior to surgery ( 9AM) with a maximum of 20 ounces. - No food from midnight until time of surgery and no smoking, or chewing tobacco (or any form of nicotine). No chewing gum, candy or mints. Take only the following medications with a SIP of water on the morning of surgery: __AMLODIPINE,CARVEDILOL,LEVOTHYROXINE DO NOT STOP ANY OF YOUR OTHER PRESCRIPTION MEDICATIONS PRIOR TO SURGERY EXCEPT THE FOLLOWING Hold all vitamins and supplements for 3 days per anesthesiologist. LAST DOSE 11/03/24 Medications to discontinue per physician __ASPIRIN AND MELOXICAM PER DR STOKES Date to take last dose Please no make-up, nail dominican, hairspray, perfume, deodorant, or body powder the day of surgery.? No jewelry (including any body piercings) or valuables the day of surgery, leave them at home.? Please take a shower or bath the night before, or the morning of, surgery with an antibacterial soap.? Wear comfortable, loose fitting clothing.? Children are encouraged to wear pajamas. - Jewelry must be removed prior to entering the operating room.? Rings and piercings that are not removed may be cut off. - The hospital will not accept responsibility for valuables.? - Please leave all valuables, including medications, at home the day of surgery. If you are going home after surgery, a licensed chair car driver must drive you home.? - NO public transportation without another adult if you receive anesthesia. - We recommend that an adult stay with you for 24 hours following discharge. - We also recommend that you do not drive, make important decision, drink alcoholic beverages, or take any drugs that were not prescribed by your health care provider for at least 24 hours after your discharge time. For Pediatric surgeries, we recommend two adults accompany the child home. Follow any additional instructions given to you from your surgeon. VERBAL AND WRITTEN instructions given to _PATIENT and asked if any additional questions and then verbalized understanding. Patient advised to call surgeon office or pre surgery nurse liaison [phone] if any additional questions.
[2024-10-26 14:01] VITALS: BMI 23.5
[2024-10-26 14:44] VITALS: BP 181/64; PULSE 73; RESP 18; TEMP 36.8; O2SAT 98
[2024-11-07] VITALS (17 sets, daily range): BP systolic 137–202; BP diastolic 47–75; PULSE 62–77; RESP 10–19; TEMP 36.1–36.6; O2SAT 95–100
--- NOTE | ~2024-11-07 | XR_ITS ---
[id number] Ordering provider: Marquis Jackson MD History: . POST-OP, RIGHT TKA . Comparison: None. FINDINGS: BONES: No acute fracture or dislocation. JOINT SPACES: Total knee arthroplasty. SOFT TISSUES: Postoperative changes in the skin, subcutaneous tissues and soft tissues. IMPRESSION: No acute osseous abnormality right knee. Total knee arthroplasty. Reviewed, dictated and finalized at location A.
--- OUTSIDE RECORDS SUMMARY | 2024-11-07 00:21 | XMS_ITS | Clinical Summary ---
Author Organization [facility] Radha Soto Address [address] [place] [address] Care Team Providers Care Education Supervisor Name Role Phone Miguel A Angelo Primary Care Provider [phone] Allergies No known active allergies Medications calcium [...] Encounters Date Type Department Care Team Description 11/01/2024 External Device Data STL ABSTRACTION Provider, Abstract 10/21/2024 External Device Data [facility] ABSTRACTION Provider, Abstract 10/20/2024 External Device Data [facility] ABSTRACTION Provider, Abstract 10/17/2024 External Device Data ST[facility] ABSTRACTION Provider, Abstract 10/03/2024 External Device Data STL ABSTRACTION Provider, Abstract 09/07/2024 Abstract [facility] Oncology and Hematology [facility] [address] [place] [address] Charles Mares MD 09/07/2024 External Device Data STL ABSTRACTION Provider, Abstract 09/06/2024 External Device Data STL ABSTRACTION Provider, Abstract 09/06/2024 Telephone [facility] Oncology [facility] Hematology [facility] [address] [place] [address] Charles Mares MD Surgical Clearance 09/05/2024 External Device Data STL ABSTRACTION Provider, Abstract 08/29/2024 External Device Data STL ABSTRACTION Provider, Abstract 08/28/2024 Orders Only [facility] Oncology and Hematology [facility] [address] [place] [address] Charles Mares MD 08/24/2024 10:00 AM MOUNTER HAND Office Visit [facility] Oncology [facility] Hematology [facility] [address] [place] [address] Charles Mares MD Chronic anemia (Primary Dx) 08/24/2024 Orders Only [facility] Oncology [facility] Hematology [facility] [address] [place] [address] Charles Mares MD from Last 3 Months Family History Medical [...] Comments Blood Pressure 167/88 08/24/2024 9:47 AM MOUNTER HAND Pulse 64 08/24/2024 9:45 AM MOUNTER HAND Temperature 36.3 C (97.4 F) 08/24/2024 9:45 AM MOUNTER HAND Respiratory Rate 15 08/24/2024 9:45 AM MOUNTER HAND Oxygen Saturation 98% 08/24/2024 9:45 AM MOUNTER HAND Inhaled Oxygen Concentration - - Weight 66.7 kg (147 lb) 08/24/2024 9:45 AM MOUNTER HAND Height 170.2 cm (5' 7 ) 02/28/2024 2:17 PM CDT Body Mass Index 23.02 02/28/2024 2:17 PM CDT Plan of Treatment Upcoming Encounters Date Type Department Care Team (Late st Contact Info) Description 12/28/2024 11:30 AM CDT Office Visit [facility] Oncology and Hematology - [place] [address] [facility] [address] [place] [address] Charles Mares MD [address] [facility] [address] [place] [address] Health Maintenance Due Date Last [...] 2017 INFLUENZA VACCINE (#1) 2024 [place] ([place]) Prev entative Visit/Annual Wellness Visit 08/16/2024 RSV VACCINE (60+ or ) (1 - 1-dose 75+ series) 11/28/2027 Procedures Procedure Name Priority Date/Time Associated Diagnosis Comments IRON, TIBC, AND PERCENT SATURATION Routine 08/23/2024 12:51 PM MOUNTER HAND CBC WITH AUTODIFFERENTIAL Routine 2024 11:52 AM MOUNTER HAND US ABDOMEN COMPLETE Routine 08/17/2024 1 2:43 PM MOUNTER HAND from Last 3 Months Results * IRON, TIBC, AND PERCENT SATURATION (08/23/2024 12:51 PM MOUNTER HAND) Blood us Charles Mares MD CHEMISTRY ORDERABLES Final Resu lt * CBC WITH AUTODIFFERENTIAL (08/23/2024 11:52 AM MOUNTER HAND) Blood us Charles Mares MD HEMATOLOGY ORDERABLES Final Res ult * US ABDOMEN COMPLETE (08/17/2024 12:43 PM MOUNTER HAND) Anatomical Region Laterality Modality Abdomen Ultrasound us Charles Mares MD US ORDERABLES Final Result from Last [address] [place] [id number] Care Teams Education Supervisor Relationship Specialty Start Date End Date Miguel A Angelo DO [address] [facility] [address] [place] [address] PCP - General Internal Medicine 06/08/24
--- NOTE | 2024-11-07 10:51 | WPDHPUPDATE1 ---
History and Physical Update Update Date/Time: 11/07/24 10:51 History and Physical has been reviewed, including an updated exam of the patient. There are NO changes in the patient's condition. Risks, benefits, and alternatives have been discussed and questions answered. Patient agrees to proceed with procedure.
[2024-11-07] MEDS: LACTATED RINGERS 1,000 ML 30 ML IV CONT (11:00)
[2024-11-07 11:13] LABS: Glucose Point of Care 109 mg/dl (65-105)
[2024-11-07 11:24] LABS: Sodium 132 mmol/L (137-145)
[2024-11-07] MEDS: ACETAMINOPHEN 500 MG TABLET 1000 MG PO (11:30)
[2024-11-07] MEDS: TRANEXAMIC ACID 1,000MG/ISO100 1,000 MG/100 ML BAG 200 MG IVPB (11:30)
--- NOTE | 2024-11-07 13:48 | P.PNAN_ITS ---
Anes - Initial Pre Proc Eval Procedure: Operation Date: 11/07/24 14:30 Proposed Procedures p Right Total Knee Arthroplasty - aMrquis Jackson MD Date/Time: 11/07/24 13:48 Surgeon: Marquis Jackson MD Pre Op Diagnosis: right knee oa with a valgus deformity Patient Data Age: 73 Gender: F Height: 1.7 m Weight: 66.3 kg Last Vital Signs Temp 97.5 F L 11/07/24 11:33 Pulse 69 11/07/24 11:33 Resp 16 11/07/24 11:33 BP 180/65 H 11/07/24 11:33 Pulse Ox 100 11/07/24 11:33 O2 Del Method Room Air 11/07/24 11:33 Allergies Allergy/AdvReac Type Severity Reaction Status Date / Time No Known Allergies Allergy Unknown Verified 11/07/24 11:27 Home Medications ?Medication ?Instructions ?Recorded ?Confirmed ?Type aspirin 81 mg tablet 81 mg PO DAILY 12/12/21 11/07/24 History ferrous sulfate 325 mg (65 mg 325 mg PO DAILY #90 tabs 11/25/23 10/30/24 Rx iron) tablet (FeroSul) metformin 500 mg tablet 500 mg PO BID #270 tabs 03/07/24 10/30/24 Rx levothyroxine 88 mcg tablet See Rx Instructions .Route 06/27/24 11/07/24 Rx .COMPLEX #90 tabs hydrochlorothiazide 25 mg tablet See Rx Instructions .Route 07/05/24 10/30/24 Rx .COMPLEX #90 tabs famotidine 20 mg tablet See Rx Instructions .Route 07/17/24 10/30/24 Rx .COMPLEX #90 tabs lisinopril 40 mg tablet See Rx Instructions .Route 08/22/24 10/30/24 Rx .COMPLEX #180 tabs simvastatin 20 mg tablet See Rx Instructions .Route 08/22/24 10/30/24 Rx .COMPLEX #90 tabs cholecalciferol (vitamin D3) 1,250 See Rx Instructions .Route 09/07/24 10/30/24 Rx mcg (50,000 unit) capsule .COMPLEX #6 caps meloxicam 15 mg tablet See Rx Instructions .Route 09/19/24 11/07/24 Rx .COMPLEX #30 tabs amlodipine 5 mg tablet See Rx Instructions .Route 09/29/24 11/07/24 Rx .COMPLEX #90 tabs carvedilol 25 mg tablet 25 mg PO BID #180 tabs 10/24/24 11/07/24 Rx Lactobacillus acidophilus 10 100 mmu cells PO HS 10/26/24 10/30/24 History billion cell capsule (NewFlora) calcium 600 mg (as 1 tablet PO DAILY 10/26/24 10/30/24 History carbonate)-vitamin D3 5 mcg (200 unit) tablet (Calcium 600 + D(3)) ergocalciferol (vitamin D2) 1,250 50,000 unit PO MONTHLY 10/26/24 10/30/24 History mcg (50,000 unit) capsule multivitamin (Daily Multi-Vitamin 1 tablet PO HS 10/26/24 11/07/24 History tablet) chlorhexidine gluconate 4 % 1 applic topical DAILY #237 mL 10/31/24 Rx topical liquid (Hibiclens) Laboratory Tests 11/07/24 11/07/24 10:49 11:08 Sodium 132 L mmol/L (137-145) POC Capillary Glucose 109 H mg/dl (65-105) Patient hx anesthesia problems: none Family hx anesthesia problems: none Results Review: All pre-operative results and documents have been reviewed as part of the pre- operative evaluation. 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 Constipation Frequency of urination Diarrhea Vomiting High cholesterol AVD (aortic valve disease) Anemia, unspecified Essential (primary) hypertension Heart murmur Hypothyroidism, unspecified Type 2 diabetes mellitus without complication Surgical History Surgical History History of Amplatzer atrial septal defect closure S/P removal of left ovary History of appendectomy Family History Family History Father Family history of diabetes mellitus in first degree relative Family history of heart disease in male family member before age 55 Grandparent Family history of malignant neoplasm of breast Mother Family history of heart disease in male family member before age 55 Sibling , Aids No problems noted. Other Diabetes mellitus Heart disease High cholesterol Hypertension Social History Social History Smoking status: Never smoker Second hand tobacco smoke exposure: Yes Additional smoking assessment comments: DENIES ANY FORM OF TOBACCO USE Alcohol intake: former Substance use: never Substance use type: does not use Do You Feel Safe in your Home?: Yes Lack of Transportation: No Lack of Food: Never True Current Housing: I Have Housing Concerned About Future Housing: No Difficulty Paying Gas/Electric Bills: No Difficulty Paying for Meds: No Currently Unemployed: No Education: High School Diploma/GED Difficulty w/ Childcare or Family Care: No Living arrangements: with family Occupation/Education: occupation Additional occupation/education comments: [employer] Gender identity (if verbalized by the patient): Female Spiritual care concerns: No Anes - Eval Final PreProcedure Day of Procedure 11/07/24 13:48 Patient weight: normal Lungs: normal air movement Airway: Mallampati scale class II and special considerations (Overbite appreciated. ) Neurological: alert and oriented Last oral intake: >/= 8 hours ASA classification: III Emergent: no Anesthetic plan: proceed Anesthesia type and monitoring: general ETT and standard monitoring Results Review: All pre-operative results and documents have been reviewed as part of the pre- operative evaluation. HTN, hyperlipidemia, DM fsbs 109, hx of ASD closure in the past. Informed Consent: The patient's anesthetic plan and its attendant risks and benefits were discussed with the patient/family/POA. Questions were solicited and answers provided to the satisfaction of the patient/family/POA.
--- NOTE | 2024-11-07 14:07 | WPDANESPNB ---
Anes - Peripheral Nerve Block Date/Time: 11/07/24 14:07 I have discussed with the patient/family/POA the placement of a peripheral nerve block for post-operative pain management, including associated risks, benefits, complications, and side effects. Alternative methods of post-operative analgesia were detailed. Questions were solicited and answers provided to the satisfaction of the patient/family/POA. Time-Out: A pre-procedural Time-Out was completed immediately before starting the procedure and confirmed: Patient Identification, Site, Procedure, Patient Position and the Availability of Requisite Equipment. Clinical Indications: Acute post-operative pain management requested by the operative surgeon. Nerve Block Insertion Note Anes-nerve block: adductor canal right Patient position: supine Skin prep: chlorhexidine Needle: 22 gauge, stimulating, insulated echogenic needle. Needle length: 80 mm Technique: ultrasound Injectate: other (Bupiv 0.5% 12 mls. ) Observations: tolerated well Complications: none Procedure start time:: 1400 Procedure end time:: 1405
[2024-11-07] MEDS: ceFAZolin 2 GM/D5W 50 ML 2 GM/50 ML BAG IVPB ×2 (14:25→21:06)
[2024-11-07] MEDS: SODIUM CHLORIDE 0.9% IV 37.7 ML, MORPHINE SULFATE INJ (*CRX) 2 MG, ROPivacaine HCL 1% 2... INFILTRATE (15:11)
[2024-11-07] MEDS: TRANEXAMIC ACID 1,000 MG/10 ML AMPUL 1000 MG IV PUSH (15:58)
--- NOTE | 2024-11-07 16:38 | W.PM.PROC2 ---
Procedure Note - Detailed Date of Procedure 11/07/24 Pre-op Diagnosis right knee oa with a valgus deformity Post-op Diagnosis Same Procedure Performed R TKA Surgeon Marquis Jackson MD Anesthesia General Description of Procedure THE RIGHT KNEE WAS PREPPED AND DRAPED IN THE STERILE FASHION. THE KNEE WAS IN RECURVATUM OF ABOUT 10 DEGREES. THERE WAS A SIGNIFICANT VALGUS DEFORMITY AND MEDIAL LAXITY. A MIDLINE SKIN INCISION WAS MADE. A MEDIAL PARAPATELLAR ARTHROTOMY WAS MADE. THE PATELLA WAS EVERTED. THERE WAS TRICOMPARTMENT DJD. THERE WAS MINIMAL PATELLA DJD. AN INTRAMEDULLARY JOAN WAS PLACED IN THE FEMUR. A DISTAL FEMORAL CUT WAS MADE IN 5 DEGREES OF VALGUS REMOVING APPROXIMATELY 9 MM OF BONE FROM THE DISTAL FEMUR. THE FEMUR WAS SIZED TO 62.5. A 62.5 FEMORAL CUTTING BLOCK WAS PLACED IN 3 DEGREES OF EXTERNAL ROTATION AND IN ALIGNMENT WITH RIKKI'S LINE AND THE TRANSEPICONDYLAR AXIS. ANTERIOR POSTERIOR AND CHAMFER CUTS WERE MADE. THE CUTS WERE EXCELLENT. NEXT AN INTRAMEDULLARY CUTTING GUIDE WAS PLACED IN THE TIBIA. A TRANS TIBIAL CUT WAS MADE ALONG THE LONG AXIS OF THE TIBIA. APPROXIMATELY 10 MM OF BONE WAS REMOVED FROM THE HIGH SIDE OF THE TIBIA. THE TIBIA WAS THEN PLANED TO A SMOOTH SURFACE. POSTERIOR FEMORAL OSTEOPHYTES WERE REMOVED FROM THE FEMORAL CONDYLES. A 67 TIBIAL TRIAL WAS PLACED IN ALIGNMENT WITH THE 1/3 MEDIAL ASPECT OF THE TIBIAL TUBERCLE. THEN A 62.5 FEMORAL TRIAL COMPONENT WAS PLACED. BOTH HAD EXCELLENT FITS. EVENTUALLY A 12 MM POLYETHYLENE TRIAL COMPONENT WAS PLACED. THE KNEE WAS TAKEN THROUGH A RANGE OF MOTION. LIGAMENT BALANCING WAS PREFORMED. THE KNEE CAME OUT TO FULL EXTENSION. THERE WAS NO ABNORMAL TILT TO THE PATELLA. THERE WAS GOOD A/P AND VARUS/VALGUS STABILITY IN FLEXION, MID FLEXION AND EXTENSION. THERE WAS NO EXCESSIVE ROLL BACK WITH FLEXION. THE TRIAL COMPONENTS WERE REMOVED. THEN A 62.5 FEMORAL COMPONENT AND 67 TIBIAL COMPONENT WITH A 12 POLYETHYLENE COMPONENT WERE CEMENTED INTO PLACE. ONCE THE CEMENT WAS HARD THE KNEE WAS TAKEN THROUGH A ROM AGAIN AND FOUND TO BE STABLE WITH NO PATELLA TILT NO EXCESSIVE ROLL BACK WITH FLEXION AND GOOD STABILITY WITH COMPLETE AND FULL EXTENSION. THE KNEE WAS IRRIGATED WITH STERILE BETADINE AND WATER FOR ABOUT 3 MINUTES. THE BLEEDERS WERE CAUTERIZED. THE ARTHROTOMY WAS REPAIRED WITH NUMBER 1 VICRYL AND #2 STRATAFIX. THE SUB CUTANEOUS LAYER WITH 2-0 VICRYL AND THE SKIN WITH THIERNO. THE WOUND WAS WASHED AND A STERILE DRESSING WAS APPLIED. PATIENT WAS EXTUBATED. Estimated Blood Loss 300 Pathology None sent Complications No immediate complications Condition Stable Disposition PACU
[2024-11-07] MEDS: fentaNYL CITRATE INJ (*CRX) 100 MCG/2 ML VIAL 25 MCG IV PUSH ×2 (17:00→17:05)
[2024-11-07] MEDS: hydrALAZINE HCL 20 MG/ML VIAL 10 MG IV PUSH (17:16)
--- NOTE | 2024-11-07 17:34 | SUR.PHASEI ---
patient having elevated blood pressures. this RN notified . orders 10 of hydralazine and then would like to patient to take home medications when in inpatient room
[2024-11-07] MEDS: diphenhydrAMINE HCl INJ 50 MG/ML VIAL 25 MG IV PUSH (18:04)
[2024-11-07 18:29] LABS: Glucose Point of Care 117 mg/dl (65-105)
[2024-11-07] MEDS: metFORMIN HCL 500 MG TABLET PO (19:05)
[2024-11-07] MEDS: SENNA/DOCUSATE SODIUM TABLET 2 TAB PO (19:05)
[2024-11-07] MEDS: diazePAM (*CRX) 5 MG TABLET PO (19:05)
--- NOTE | 2024-11-07 19:44 | ADMGEN ---
This patient, Giselle Montoya, was admitted to 3 [facility] Surg Room 309-01. Patient/family oriented to hospital policies and general routines including ID bracelet, bed and alarms, visiting hours, pain management, procedures, bathroom and other care routines, personal items, smoking policy, room service/diet, and visiting hours. Information on how to activate the Rapid Response Team has been discussed. Patient/Family are encouraged to report perceived risks to care and to ask questions if they do not understand what they are told or what they should do.
[2024-11-07] MEDS: SODIUM CHLORIDE 0.9% IV 1,000 ML 125 ML IV CONT (20:28)
[2024-11-07 20:46] LABS: Glucose Point of Care 119 mg/dl (65-105)
[2024-11-07] MEDS: lisinopriL 20 MG TABLET 40 MG BY MOUTH (21:07)
[2024-11-07] MEDS: ASPIRIN 81 MG ENTERIC TABLET PO (21:07)
[2024-11-07] MEDS: carvediloL 25 MG TABLET PO (21:07)
[2024-11-07] MEDS: MULTIVITAMINS THERAPEUTIC TAB (*BKC) 1 TABLET PO (21:07)
[2024-11-08 03:36] VITALS: BP 166/57; PULSE 63; RESP 16; TEMP 36.6; O2SAT 100
[2024-11-08] MEDS: oxyCODONE/ACETAMINOPHEN (*CRX) 5-325 MG TABLET 1 TABLET PO ×2 (05:52→12:10)
[2024-11-08] MEDS: ceFAZolin 2 GM/D5W 50 ML 2 GM/50 ML BAG IVPB ×2 (05:52→13:25)
[2024-11-08] MEDS: LEVOTHYROXINE SODIUM 88 MCG TABLET BY MOUTH (05:52)
[2024-11-08 05:54] LABS: Basophils Absolute Auto 0.1 K/mm3 (0.0-0.1); Basophils Percent Auto 0.5 % (0.2-1.2); Eosinophils Absolute Auto 0.2 K/mm3 (0-0.3); Eosinophils Percent Auto 2.3 % (0-4.4); Hematocrit 27.6 % (37.0-47.0); Hemoglobin 8.8 g/dL (12.0-15.0); Immature Granulocyte Absolute 0.15 K/mm3 (0.00-0.031); Immature Granulocyte Percent A 1.5 % (0-0.5); Lymphocytes Absolute Auto 2.76 K/mm3 (0.9-3.2); Lymphocytes Percent Auto 27.6 % (18.3-44.2); Mean Corpuscular HGB Conc 31.9 g/dl (32-36); Mean Corpuscular Hemoglobin 29.1 pg (26-34); Mean Corpuscular Volume 91.4 fl (80-100); Mean Platelet Volume 9.2 fl (7.4-10.4); Monocytes Absolute Auto 0.8 K/mm3 (0.1-0.6); Monocytes Percent Auto 8.4 % (2.6-8.5); Neutrophils Percent Auto 59.7 % (45.5-73.1); Platelet Count Result 255 k/mm3 (150-375); Red Blood Count 3.02 M/mm3 (4.2-5.4); Red Cell Distribution Width 14.6 % (11.5-14.5)
[2024-11-08 06:05] LABS: Anion Gap 7 mmol/L (4-12); Blood Urea Nitrogen 13 mg/dL (7-17); Calcium 8.8 mg/dL (8.4-10.2); Carbon Dioxide 23 mmol/L (22-30); Chloride 102 mmol/L (98-107); Estimated CRCL calculation 79 ml/min; Estimated Glomerular Filt Rate > 60; Glucose 85 mg/dL (65-110); Potassium 4.3 mmol/L (3.4-5.0); Sodium 132 mmol/L (137-145)
[2024-11-08 07:46] LABS: Glucose Point of Care 98 mg/dl (65-105)
[2024-11-08 08:00] VITALS: BP 139/64; PULSE 78; RESP 18; TEMP 36.3; O2SAT 100
[2024-11-08] MEDS: polyethylene glycoL 3350 17 GM POWD.PACK PO (09:06)
[2024-11-08] MEDS: CALCIUM/VITAMIN D 500 MG/5 MCG (200 I.U.) TABLET PO (09:07)
[2024-11-08] MEDS: lisinopriL 20 MG TABLET 40 MG BY MOUTH (09:07)
[2024-11-08] MEDS: SENNA/DOCUSATE SODIUM TABLET 2 TAB PO ×2 (09:07→17:19)
[2024-11-08] MEDS: ASPIRIN 81 MG ENTERIC TABLET PO (09:07)
[2024-11-08] MEDS: SIMVASTATIN 20 MG TABLET BY MOUTH (09:07)
[2024-11-08] MEDS: hydroCHLOROthiazide 25 MG TABLET BY MOUTH (09:07)
[2024-11-08 09:08] VITALS: PULSE 78
[2024-11-08] MEDS: amLODIPine BESYLATE 5 MG TABLET BY MOUTH (09:08)
[2024-11-08] MEDS: FERROUS SULFATE 325 MG TABLET DR PO (09:08)
[2024-11-08] MEDS: carvediloL 25 MG TABLET PO (09:08)
[2024-11-08] MEDS: FAMOTIDINE 20 MG TABLET BY MOUTH (09:08)
[2024-11-08] MEDS: metFORMIN HCL 500 MG TABLET PO ×2 (09:09→17:19)
--- OUTSIDE RECORDS SUMMARY | 2024-11-08 10:56 | XMS_ITS | Clinical Summary ---
Author Organization [facility] Radha Soto Address [address] [place] [address] Care Team Providers Care Scaler Name Role Phone Miguel A Angelo Primary Care Provider Allergies No known active allergies Medications calcium [...] Data STL ABSTRACTION Provider, Abstract 09/07/2024 Abstract [facility] Oncology and Hematology [facility] [address] [place] [address] Charles Mares MD 09/07/2024 External Device Data STL ABSTRACTION Provider, Abstract 09/06/2024 External Device Data STL ABSTRACTION Provider, Abstract 09/06/2024 Telephone [facility] Oncology [facility] Hematology [facility] [address] [place] [address] Charles Mares MD Surgical Clearance 09/05/2024 External Device Data STL ABSTRACTION Provider, Abstract 08/29/2024 External Device Data STL ABSTRACTION Provider, Abstract 08/28/2024 Orders Only [facility] Oncology and Hematology [facility] [address] [place] [address] Charles Mares MD 08/24/2024 10:00 AM METAL FLOORING INSTALLER Office Visit [facility] Oncology [facility] Hematology [facility] [address] [place] [address] Charles Mares MD Chronic anemia (Primary Dx) 08/24/2024 Orders Only [facility] Oncology [facility] Hematology [facility] [address] [place] [address] Charles Mares MD from Last 3 Months [...] Comments Blood Pressure 167/88 08/24/2024 9:47 AM METAL FLOORING INSTALLER Pulse 64 08/24/2024 9:45 AM METAL FLOORING INSTALLER Temperature 36.3 C (97.4 F) 08/24/2024 9:45 AM METAL FLOORING INSTALLER Respiratory Rate 15 08/24/2024 9:45 AM METAL FLOORING INSTALLER Oxygen Saturation 98% 08/24/2024 9:45 AM METAL FLOORING INSTALLER Inhaled Oxygen Concentration - - Weight 66.7 kg (147 lb) 08/24/2024 9:45 AM METAL FLOORING INSTALLER Height 170.2 cm (5' 7 ) 02/28/2024 2:17 PM CDT Body Mass Index 23.02 02/28/2024 2:17 PM CDT Plan of Treatment Upcoming Encounters Date Type Department Care Team (Late st Contact Info) Description 12/28/2024 11:30 AM CDT Office Visit [facility] Oncology and Hematology - [place] [address] [facility] [address] [place] [address] Charles Mares MD [address] [facility] [address] [place] [address] Health Maintenance Due Date Last [...] 2017 INFLUENZA VACCINE (#1) 2024 Medicare Advantage (NE) Prev entative Visit/Annual Wellness Visit 08/16/2024 RSV VACCINE (60+ or ) (1 - 1-dose 75+ series) 11/28/2027 Procedures Procedure Name Priority Date/Time Associated Diagnosis Comments IRON, TIBC, AND PERCENT SATURATION Routine 08/23/2024 12:51 PM METAL FLOORING INSTALLER CBC WITH AUTODIFFERENTIAL Routine 2024 11:52 AM METAL FLOORING INSTALLER US ABDOMEN COMPLETE Routine 08/17/2024 1 2:43 PM METAL FLOORING INSTALLER from Last 3 Months Results * IRON, TIBC, AND PERCENT SATURATION (08/23/2024 12:51 PM METAL FLOORING INSTALLER) Blood us Charles Mares MD CHEMISTRY ORDERABLES Final Resu lt * CBC WITH AUTODIFFERENTIAL (08/23/2024 11:52 AM METAL FLOORING INSTALLER) Blood us Charles Mares MD HEMATOLOGY ORDERABLES Final Res ult * US ABDOMEN COMPLETE (08/17/2024 12:43 PM METAL FLOORING INSTALLER) Anatomical Region Laterality Modality Abdomen Ultrasound us Charles Mares MD US ORDERABLES Final Result from Last [address] [place] [address] [place] [id number] Care Teams Scaler Relationship Specialty Start Date End Date Miguel A Angelo DO [address] [facility] [address] [place] [address] PCP - General Internal Medicine 06/08/24
[2024-11-08 11:37] LABS: Glucose Point of Care 106 mg/dl (65-105)
[2024-11-08 12:22] VITALS: BP 144/50; PULSE 72; RESP 18; TEMP 36.4; O2SAT 100
[2024-11-08 16:00] VITALS: BP 175/71; PULSE 77; RESP 18; TEMP 36.3; O2SAT 97
[2024-11-08 16:34] LABS: Glucose Point of Care 123 mg/dl (65-105)
--- NOTE | 2024-11-08 16:57 | P.PNOP_ITS ---
Progress Note: A&P Assessment and Plan (1) Degenerative joint disease of knee: Qualifiers: Osteoarthritis type: primary Laterality: right Qualified Code(s): M17.11 - Unilateral primary osteoarthritis, right knee Code(s): M17.10 - Unilateral primary osteoarthritis, unspecified knee Status: Acute (2) Right knee DJD: Qualifiers: Osteoarthritis type: primary Qualified Code(s): M17.11 - Unilateral primary osteoarthritis, right knee Code(s): M17.11 - Unilateral primary osteoarthritis, right knee Status: Acute Assessment and Plan: POD 1 DOING WELL WITH GOOD PROGRESS WITH PT. OK TO DC HOME F/U IN 3 WEEKS Subjective Subjective Date/Time Seen: 11/08/24 16:57 Interval history: POD 1 DOING WELL. GOOD PROGRESS WITH PT. NO CALF PAIN Exam Extrem: Other: VSS AFEBRILE DRESSING DRY NV INTACT NEG HOMANS SIGN CALF SOFT NON TENDER Objective Data Vital Signs Vital Signs: Vital Signs - 24 hr 11/07/24 17:00 11/07/24 17:15 11/07/24 17:30 Temperature Pulse Rate 67 70 68 Respiratory Rate 15 16 16 Blood Pressure 202/67 H 182/75 H 170/56 H Pulse Oximetry 97 95 97 Oxygen Delivery Room Air Room Air Room Air 11/07/24 17:45 11/07/24 18:00 11/07/24 18:15 Temperature 36.3 C L Pulse Rate 77 66 67 Respiratory Rate 19 16 16 Blood Pressure 170/56 H 175/66 H 161/53 H Pulse Oximetry 98 97 100 Oxygen Delivery Room Air Room Air 11/07/24 18:30 11/07/24 19:35 11/07/24 19:50 Temperature 36.6 C 36.1 C L Pulse Rate 69 72 62 Respiratory Rate 15 18 16 Blood Pressure 149/57 H 150/59 H 151/51 H Pulse Oximetry 97 100 100 Oxygen Delivery Room Air 11/07/24 20:20 11/07/24 21:07 11/07/24 21:20 Temperature 36.5 C 36.4 C L Pulse Rate 64 69 63 Respiratory Rate 16 18 Blood Pressure 174/53 H 154/47 H Pulse Oximetry 100 100 Oxygen Delivery 11/07/24 21:35 11/07/24 23:46 11/08/24 03:36 Temperature 36.5 C 36.6 C Pulse Rate 69 66 63 Respiratory Rate 15 16 16 Blood Pressure 157/58 H 166/57 H Pulse Oximetry 97 100 100 Oxygen Delivery Room Air 11/08/24 08:00 11/08/24 09:08 11/08/24 09:10 Temperature 36.3 C L Pulse Rate 78 78 Respiratory Rate 18 Blood Pressure 139/64 Pulse Oximetry 100 Oxygen Delivery Room Air 11/08/24 11:12 11/08/24 12:22 Temperature 36.4 C L Pulse Rate 72 Respiratory Rate 18 Blood Pressure 144/50 H Pulse Oximetry 100 Oxygen Delivery Room Air Intake/Output Intake/Output: Intake & Output 11/05/24 11/06/24 11/07/24 11/08/24 23:59 23:59 23:59 23:59 Intake Total 100 1130 Balance 100 1130 Meds/Results Medications: Active Medications Generic Name Dose Route Start Last Admin Trade Name Freq PRN Reason Stop Dose Admin Acetaminophen 500 mg 11/07/24 18:37 Acetaminophen 500 Mg Tablet PO Q6H PRN Pain Rated 1-3 Amlodipine Besylate 5 mg 11/08/24 09:00 11/08/24 09:08 Amlodipine Besylate 5 Mg Tablet BY MOUTH 5 mg DAILY TYLER Administration Aspirin 81 mg 11/07/24 21:00 11/08/24 09:07 Aspirin 81 Mg Enteric Tablet PO 81 mg Q12HR TYLER Administration Calcium Carbonate 500 mg 11/08/24 09:00 11/08/24 09:07 Calcium/Vitamin D 500 Mg/5 Mcg (200 I.U.) Tablet PO 500 mg DAILY TYLER Administration Carvedilol 25 mg 11/07/24 21:00 11/08/24 09:08 Carvedilol 25 Mg Tablet PO 25 mg Q12HR TYLER Administration Diazepam 5 mg 11/07/24 18:37 11/07/24 19:05 Diazepam (*Crx) 5 Mg Tablet PO 5 mg Q8H PRN Administration Spasms Diphenhydramine HCl 25 mg 11/07/24 18:37 Diphenhydramine Hcl Inj 50 Mg/Ml Vial IV PUSH Q6H PRN Itching Famotidine 20 mg 11/08/24 09:00 11/08/24 09:08 Famotidine 20 Mg Tablet BY MOUTH 20 mg DAILY TYLER Administration Ferrous Sulfate 325 mg 11/08/24 09:00 11/08/24 09:08 Ferrous Sulfate [address] PO 325 mg DAILY TYLER Administration Hydrochlorothiazide 25 mg 11/08/24 09:00 11/08/24 09:07 Hydrochlorothiazide 25 Mg Tablet BY MOUTH 25 mg DAILY TYLER Administration Hydromorphone HCl 1 mg 11/07/24 18:37 Hydromorphone Hcl Inj (*Crx) 1 Mg/Ml Syr IV PUSH Q2H PRN Breakthrough Pain Rated 7-10 or NPO Hydromorphone HCl 0.5 mg 11/07/24 18:37 Hydromorphone Hcl Inj (*Crx) 1 Mg/Ml Syr IV PUSH Q2H PRN Breakthrough Pain Rated 4-6 or NPO Ibuprofen 800 mg in 200 mls @ 400 mls/hr 11/07/24 18:37 Caldolor 800 Mg/200 Ml IVPB Q6H PRN Breakthrough Pain Rated 1-3 or NPO Levothyroxine Sodium 88 mcg 11/08/24 06:30 11/08/24 05:52 Levothyroxine Sodium 88 Mcg Tablet BY MOUTH 88 mcg DAILY@0630 TYLER Administration Lisinopril 40 mg 11/07/24 21:00 11/08/24 09:07 Lisinopril 20 Mg Tablet BY MOUTH 40 mg Q12HR TYLER Administration Metformin HCl 500 mg 11/07/24 18:37 11/08/24 09:09 Metformin Hcl 500 Mg Tablet PO 500 mg BID TYLER Administration Multivitamins Therapeutic 1 tablet 11/07/24 21:00 11/07/24 21:07 Multivitamins Therapeutic Tab (*Bkc) PO 1 tablet HS TYLER Administration Naloxone HCl 0.1 mg 11/07/24 18:37 Naloxone Hcl 0.4 Mg/Ml Vial IV PUSH Q2M PRN Opiate Reversal Ondansetron HCl 4 mg 11/07/24 18:37 Ondansetron Inj 4 Mg/2 Ml Vial IV PUSH Q4H PRN Nausea And Vomiting Oxycodone/Acetaminophen 1 tablet 11/07/24 18:37 11/08/24 12:10 Oxycodone/Acetaminophen (*Crx) 5-325 Mg Tablet PO 1 tablet Q4H PRN Administration Pain Rated 4-6 Oxycodone/Acetaminophen 1 tab 11/07/24 18:37 Oxycodone/Acetaminophen (*Crx) 10-325 Mg Tablet PO Q6H PRN Pain Rated 7-10 Polyethylene Glycol 17 gm 11/08/24 09:00 11/08/24 09:06 Polyethylene Glycol 3350 17 Gm Powd.Pack PO 17 gm QAM TYLER Administration Senna/Docusate Sodium 2 tab 11/07/24 18:37 11/08/24 09:07 Senna/Docusate Sodium Tablet PO 2 tab BID TYLER Administration Simvastatin 20 mg 11/08/24 09:00 11/08/24 09:07 Simvastatin 20 Mg Tablet BY MOUTH 20 mg DAILY TYLER Administration Radiology Results: ITS Impressions Knee X-Ray 11/07/24 16:53 IMPRESSION: No acute osseous abnormality right knee. Total knee arthroplasty. Labs Labs: Laboratory Results - last 24 hr 11/07/24 11/07/24 11/08/24 18:27 19:55 05:32 WBC 10.0 RBC 3.02 L Hgb 8.8 L Hct 27.6 L MCV 91.4 MCH 29.1 MCHC 31.9 L RDW 14.6 H Plt Count 255 MPV 9.2 Immature Gran % (Auto) 1.5 H Neut % (Auto) 59.7 Lymph % (Auto) 27.6 [place] % (Auto) 8.4 Eos % (Auto) 2.3 Baso % (Auto) 0.5 Lymph # (Auto) 2.76 [place] # (Auto) 0.8 H Eos # (Auto) 0.2 Baso # (Auto) 0.1 Abs Immat Gran (auto) 0.15 H Absolute Neuts (auto) 6.0 Absolute Nucleated RBC 0.000 Nucleated RBC % 0.0 Sodium 132 L Potassium 4.3 Chloride 102 Carbon Dioxide 23 Anion Gap 7 BUN 13 Creatinine 0.53 L Estim Creat Clear Calc 79 Estimated GFR > 60 Glucose 85 POC Capillary Glucose 117 H 119 H Calcium 8.8 11/08/24 11/08/24 11/08/24 07:43 11:33 16:29 WBC RBC Hgb Hct MCV MCH MCHC RDW Plt Count MPV Immature Gran % (Auto) Neut % (Auto) Lymph % (Auto) [place] % (Auto) Eos % (Auto) Baso % (Auto) Lymph # (Auto) [place] # (Auto) Eos # (Auto) Baso # (Auto) Abs Immat Gran (auto) Absolute Neuts (auto) Absolute Nucleated RBC Nucleated RBC % Sodium Potassium Chloride Carbon Dioxide Anion Gap BUN Creatinine Estim Creat Clear Calc Estimated GFR Glucose POC Capillary Glucose 98 106 H 123 H Calcium
== END 2024-11-08 18:20 | disposition home health service (06) ==
LOC: ANH3MEDSUR 11-08 09:12 → ANHSURGERY 11-08 09:51 → ANH3MEDSUR 11-08 11:28
PROVIDERS: Anesthesiology; PCP Nurse Practitioner; Visit Provider Orthopaedic Surgery
PROC: (CPT 27447; principal; 2024-11-07 14:30)
DX: M17.11 Unilateral primary osteoarthritis, right knee (principal); G89.18 Other acute postprocedural pain; I10 Essential (primary) hypertension; E11.9 Type 2 diabetes mellitus without complications; E03.9 Hypothyroidism, unspecified; E78.00 Pure hypercholesterolemia, unspecified
CPT/HCPCS: 27447; 64447; 36415; 73560; 80048; 82948; 84295; 85025; 97110; 97161; 97165; 97530; A9270; C1713; C1776; J0171; J0360; J0690; J1200; J1885; J2003; J2250; J2270; J2405; J2704; J2795; J3010; J7030; J7120

== ENCOUNTER 2025-01-04 13:39 | Outpatient (CLI) | payer MEDICARE, SELFPAY ==
--- NOTE | ~2025-01-04 | CT_ITS ---
Clinical Indication: Abnormal LFTs CT Scan of the Chest, Abdomen, and Pelvis with Contrast: Technique: Contiguous sections were acquired throughout the chest, abdomen, and pelvis after intraven ous administration of 100 cc of Omnipaque 350. Dose reduction technique was used on this scan by dawood garnering automated exposure control and iterative reconstruction technique. The dose-length product (DL P) was 434.98 mGy-cm. Findings: There is no evidence of any significant mediastinal, hilar or axillary lymphadenopathy. The mediastin al soft tissues and vascular structures appear normal. There is no evidence of pleural or pericardial effusion. The lungs are clear. No pulmonary nodules or infiltrates are noted. There is a subacute fracture of the midsternal body. There is minimal diffuse hepatic steatosis. The spleen, pancreas, gallbladder, adrenals and kidneys a re within normal limits. There are superior atherosclerotic calcifications of the aorta and iliac ves sels. No lymphadenopathy. No bowel obstruction or bowel wall thickening. There is no evidence to suggest acute appendicitis. Sm all fat-containing umbilical hernia noted. Urinary bladder is unremarkable. No pelvic mass seen. No ascites. Impression: Diffuse hepatic steatosis. Subacute fracture of the midsternal body. Correlate for history of trauma. Small fat-containing umbilical hernia. Reviewed, dictated and finalized at location . Impression: Diffuse hepatic steatosis. Subacute fracture of the midsternal body. Correlate for history of trauma. Small fat-containing umbilical hernia.
--- OUTSIDE RECORDS SUMMARY | 2025-01-04 13:45 | XMS_ITS | Encounter Summary ---
Author Organization [facility] Address [address] [place] [address] Care Team Providers Care Sleep Scientist Name Role Phone Miguel A Angelo DO Primary Care Provider [phone] Encounter Details Date Type Department Care Team (Late st Contact Info) Description 01/03/2025 External Device Data STL ABSTRACTION Provider, Abstract NO ADDRESS ON FILE Social History Tobacco Use Types Packs/Day Years Used Date Smoking Tobacco: Never Smokeless Tobacco: Never Alcohol Use Standard Drinks/Week Comments Never 0 (1 standard drink = 0.6 oz pur e alcohol) Comments Unknown Sex and Gender Information Value Date Recorded Sex Assigned at Not on file Legal Sex Female 1:33 PM CDT Gender Identity Not on file Sexual Orientation Not on file documented as of this encounter Plan of Treatment Upcoming Encounters Date Type Department Care Team (Late st Contact Info) Description 01/10/2025 4:30 PM CDT Telephone Check Up [facility] Oncology and Hematology - [place] [address] [facility] [address] [place] [address] Charles Mares MD [address] [facility] [address] [place] [address] documented as of this encounter Visit Diagnoses Not on filedocumented in this encounter Care Teams Sleep Scientist Relationship Specialty Start Date End Date Miguel A Angelo DO [address] [facility] [address] [place] [address] PCP - General Internal Medicine 06/08/24 documented as of this encounter
--- OUTSIDE RECORDS SUMMARY | 2025-01-04 13:45 | XMS_ITS | Clinical Summary ---
Author Organization [facility] Radha Soto Address [address] [place] [address] Care Team Providers Care Production Cell Leader Name Role Phone Miguel A Angelo Primary Care Provider [phone] Allergies No known active allergies Medications calcium [...] Encounters Date Type Department Care Team Description 01/04/2025 External Device Data STL ABSTRACTION Provider, Abstract 01/03/2025 External Device Data STL ABSTRACTION Provider, Abstract 01/02/2025 External Device Data STL ABSTRACTION Provider, Abstract 12/28/2024 11:30 AM CDT Office Visit [facility] Oncology and Hematology - [place] [address] [place] [address] Charles Mares MD Elevated LFTs (Primary Dx); SOB (shortness of breath) 12/26/2024 Orders Only [facility] Oncology and Hematology - [place] [address] [place] [address] Charles Mares MD 12/25/2024 Orders Only [facility] Oncology and Hematology - [place] [address] [place] [address] Charles Mares MD 11/01/2024 External Device Data STL ABSTRACTION Provider, Abstract 10/21/2024 External Device Data STL ABSTRACTION Provider, Abstract 10/20/2024 External Device Data STL ABSTRACTION Provider, Abstract 10/17/2024 External Device Data STL ABSTRACTION Provider, Abstract from Last 3 Months Family History Medical History Relation Name Comments No Known Problems Brother No Known Problems Child Diabetes Father Heart Disease Father Heart Disease Mother Relation Name Status Comments Brother Child Alive Father Mother Social History Tobacco Use Types Packs/Day Years Used Date Smoking Tobacco: Never Smokeless Tobacco: Never Tobacco Cessation:Counseling Given: Not Answered Alcohol Use Standard Drinks/Week Comments Never 0 (1 standard drink = 0.6 oz pur e alcohol) Comments Unknown Sex and Gender Information Value Date Recorded Sex Assigned at Not on file Legal Sex Female 1:33 PM CDT Gender Identity Not on file Sexual Orientation Not on file Last Filed Vital Signs Vital Sign Reading Time Taken Comments Blood Pressure 144/79 12/28/2024 11:27 AM CDT Pulse 68 12/28/2024 11:23 AM CDT Temperature 36.1 C (97 F) 12/28/2024 11:23 AM CDT Respiratory Rate 15 12/28/2024 11:23 AM CDT Oxygen Saturation 98% 12/28/2024 11:23 AM CDT Inhaled Oxygen Concentration - - Weight 60.4 kg (133 lb 3.2 oz) 12/28/2024 11:23 AM CDT Height 170.2 cm (5' 7 ) 02/28/2024 2:17 PM CDT Body Mass Index 20.86 02/28/2024 2:17 PM CDT Plan of Treatment Upcoming Encounters Date Type Department Care Team (Late st Contact Info) Description 01/10/2025 4:30 PM CDT Telephone Check Up [facility] Oncology and Hematology - [place] [address] [facility] [address] [place] [address] Charles Mares MD [address] [facility] [address] [place] [address] Health Maintenance Due Date Last [...] OSTEOPOROSIS SCREENING 2017 INFLUENZA VACCINE (#1) 2024 RSV VACCINE (60+ or ) (1 - 1-dose 75+ series) 11/28/2027 Procedures Procedure Name Priority Date/Time Associated Diagnosis Comments CHG SOLUBLE TRANSFERRIN RECEPTOR Routine 12/21/2024 3:34 PM CDT COMPREHENSIVE METABOLIC PANEL Routine 12/21/2024 12:30 PM CDT COMPREHENSIVE METABOLIC PANEL Routine 12/21/2024 11:49 AM CDT from Last 3 Months Results * CHG SOLUBLE TRANSFERRIN RECEPTOR (12/21/2024 3:34 PM CDT) us Charles Mares MD CHG - LABORATORY Final Result * COMPREHENSIVE METABOLIC PANEL (12/21/2024 12:30 PM CDT) Only the most recent of2 resultswithin the time period is included. Blood Charles Mares MD CHEMISTRY ORDERABLES Final Resu lt from Last 3 Months Insurance [facility] [id number] [facility] [place] [place] Address: [place] [address] Care Teams Production Cell Leader Relationship Specialty Start Date End Date Miguel A Angelo DO [address] [facility] [address] [place] [address] PCP - General Internal Medicine 06/08/24
--- OUTSIDE RECORDS SUMMARY | 2025-01-04 13:45 | XMS_ITS | Encounter Summary ---
Author Organization [facility] Address [address] [place] [address] Care Team Providers Care Tire Fabricator Name Role Phone Miguel A Angelo DO Primary Care Provider [phone] Encounter Details Date Type Department Care Team (Late st Contact Info) Description 01/04/2025 External Device Data STL ABSTRACTION [...] 4:30 PM CDT Telephone Check Up [facility] Oncology and Hematology - [place] [address] [facility] [address] [place] [address] Charles Mares MD [address] [facility] [address] [place] [address] documented as of this encounter Visit Diagnoses Not on filedocumented in this encounter Care Teams Tire Fabricator Relationship Specialty Start Date End Date Miguel A Angelo DO [address] [facility] [address] [place] [address] PCP - General Internal Medicine 06/08/24 documented as of this encounter
== END 2025-01-04 13:40 | disposition home or self-care (01) ==
PROVIDERS: PCP Nurse Practitioner; Visit Provider Internal Medicine Hematology & Oncology
DX: R94.2 Abnormal results of pulmonary function studies (principal); K76.0 Fatty (change of) liver, not elsewhere classified; S22.22XA Fracture of body of sternum, initial encounter for closed fracture; X58.XXXA Exposure to other specified factors, initial encounter; K42.9 Umbilical hernia without obstruction or gangrene
CPT/HCPCS: 71260; 74177; Q9967

== ENCOUNTER 2025-02-12 09:45 | Outpatient (RCR) | payer MEDICARE, SELFPAY ==
--- NOTE | 2024-12-01 16:37 | PTOPEVAL1 ---
Assessment and note entered by Rekha Pennington, PT Evaluation Information Assessment Status Evaluation Diagnosis Z96.651 ICD-10 Condition Codes (PT) Pain in right knee M25.561,Difficulty Walking R26. 2,Abnormalities of gait and mobility R26.9, Weakness R53.1 Subjective Information Pt reports she is able to move around in bed, however she feels 3/10 discomfort on the surgical knee. states walking with and without a cane in the house but has furniture around she tend to reach for when walking; [address] house with B HRs, no problem with climbing stairs. Standing for longer period of time continue to be difficult at this time, it takes longer to get dressed due to having to take breaks to sit down due to increased pressure to the R knee, unable to drive yet. Reports the home health care nurse who came to change the bandage tore a skin, reports it wasn 't really bleeding as much but it resulted to a big scab. States she used CPM 3x/daily for an hour but sometimes upto 2 hours, machine is set up for maximum of 110 deg flexion, 0 deg extension. States it has helped and she did not feel any pain using it. Reported Pain Level Pain Score 3: Self Report Additional Pain Score Comments tender and sore around the wound. Assessment PT Clinical Summary Pt presents to therapy s/p R TKR last 11/07/[address] Jackson[address] Namrataos significant reduction in mobility and strength, significant eschar noted to the incision area, blanchable edema and pain/ tenderness around the R knee which impacts her functional mobility and ambulation with a 2WW at this time. She will greatly benefit from skilled PT to address deficits, improve mobility and stability to improve safety in performing ADLS, IADLs, household and community ambulation. Plan of Care Interventions Check Out for Orthotic/Prosthetic,Electrical Stimulation,Gait Training,Manual Therapy,Neuro Re- education,Prosthetic Training,Therapeutic Activities,Therapeutic Exercise PT Services Indicated Yes Treatment Frequency and 2x/wk x 12 visits Duration These treatments will address the objective and functional deficits as defined above. The patient will be advanced safely and appropriately in order for the patient to progress towards his/her prior level of function. Additional exercises will be introduced and as well as a comprehensive home exercise program upon discharge, if needed, ?to ensure carryover of functional gains achieved in the clinic. This treatment plan has been reviewed and agreement upon by the patient.
--- NOTE | 2024-12-08 11:23 | PCPTNOTE ---
pt called office today and cancelled her appointment at 10:45 due to having UTI and just started ABT treatment.
--- NOTE | 2025-01-12 15:34 | PTOPEVAL1 ---
Assessment and note entered by Rekha Pennington, PT Progress Information Assessment Status Progress Diagnosis Z96.651 ICD-10 Condition Codes (PT) Pain in right knee M25.561,Difficulty Walking R26. 2,Abnormalities of gait and mobility R26.9, Weakness R53.1 Subjective Information Pt reports that she saw the Ortho today and had the wound washed with alcohol and covered with bandage, no ABT prescribed. States she is not using cane inside the house only when walking out in the community. Incision area is sore but pt feels like it is getting better but is just slow and would take a longer time. Reported Pain Level Pain Score 2: Self Report Additional Pain Score Comments feels sore around the wound site. Assessment PT Clinical Summary Pt demos good progress with therapy, showed gains in mobility and significant improvement in standing and ambulation tolerance and is using a SC now versus starting out with a 2WW at eval. However, the delayed wound healing, continued postural dysfunction and balance deficits impact achievement of all established goals. She would greatly benefit from specialized wound management to improve wound healing and continued therapy to address remaining deficits and improve indep functional mobility, return to PLOF and return to work with reduced discomfort and reduced risk for falls. Plan of Care Interventions Check Out for Orthotic/Prosthetic,Electrical Stimulation,Gait Training,Manual Therapy,Neuro Re- education,Prosthetic Training,Therapeutic Activities,Therapeutic Exercise PT Services Indicated Yes Treatment Frequency and 1-2x/wk x 10 visits Duration These treatments will address the objective and functional deficits as defined above. The patient will be advanced safely and appropriately in order for the patient to progress towards his/her prior level of function. Additional exercises will be introduced and as well as a comprehensive home exercise program upon discharge, if needed, ?to ensure carryover of functional gains achieved in the clinic. This treatment plan has been reviewed and agreement upon by the patient.
--- NOTE | 2025-01-12 15:34 | OPREHPOC ---
Outpatient Therapy Plan of Care This is a Multidisciplinary Plan of Care that may contain components documented by all disciplines (PT, OT, and ST.) PT Problem 1 PT Problem #1 Knowledge Deficit PT Goal 1 Goal / Goal Update Pt will demo good understanding of diagnosis and prognosis and HEPs to improve R knee mobility and strength. - goal met Pt will perform HEPs to improve RLE stability and balance - updated 01/09/2025. Target Visit 12 PT Problem 2 PT Problem #2 Impaired Range of Motion PT Goal 1 Goal / Goal Update Pt will demo 0-120 deg of active R knee ROM without pain or discomfort - goal met Target Visit 12 Progress Met PT Problem 3 PT Problem #3 Impaired Strength PT Goal 1 Goal / Goal Update Pt will demo at least 4/5 or more gross strength of B LE. Pt will demo 5/5 strength to BLE with good stability and without pain and discomfort. Target Visit 12 Progress Met PT Problem 4 PT Problem #4 Impaired Gait PT Goal 1 Goal / Goal Update Pt will demo improved gait mechanics on various surfaces and stairs independently without AD or with least restrictive AD. - 01/09/2025: pt cont to demo antalgic gait pattern with significant postural sway and decreased stance time to RLE. Target Visit 12 Progress Not Met PT Problem 5 PT Problem #5 Impaired Functional Mobility PT Goal 1 Goal / Goal Update Pt will demo 1 leg standing each LE for 5-10 seconds without postural sway or LOB to improve indep community ambulation and reduce risk for falls. Target Visit 12 Progress Not Met
--- NOTE | 2025-01-16 09:41 | PCPTNOTE ---
Patient called & cancelled scheduled appointment this date, no reason given.
--- NOTE | 2025-02-12 10:35 | PTOPDC ---
Assessment and note entered by Kacie Conrad, PT Evaluation Information Assessment Status Discharge Diagnosis Z96.651 ICD-10 Condition Codes (PT) Pain in right knee M25.561,Difficulty Walking R26. 2,Abnormalities of gait and mobility R26.9, Weakness R53.1 Subjective Information Pt returns to work tomorrow. Knee is tight where is healing, feels like the wound is getting smaller. Thinks once it's all healed will be really good. Feels like the silver cream is helping. No soreness after last session. Reports she can make it up her porch steps but pulling herself along. Reports if she has something challenging, just takes a rest then does it again. Self-perceived improvement: 80% with wound and getting strength back being the last 20 %. Feels that getting back to normal routine will be very helpful. 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 she has minimal discomfort, has progressed from walker, to cane, and is now performing ambulation without AD. She shows passive ROM 0-125 today without difficulty. Her wound has improved recently especially since the eschar fell off. However she continues to demonstrate significant weakness RLE quads, hamstrings, and gluteus medius effecting her gait and safety with ambulation. Though she also demonstrates weakness in the LLE with longer ambulation periods, demonstrated by significant lateral sway in the midstance phase of gait on BLEs. She also reports with steps she pulls herself along. She continues to show extensor lag and significant difficulty with closed chain quads strength. She has been educated on findings, encouraged to return to using a cane for ambulation long distances and outside. PT voiced concern regarding continued weakness, gait abnormality, and balance deficits. Discussed continued therapy for high level strengthening which pt stated she would prefer to attempt continued strengthening and returning to normal activities independently at this time. Thus patient is being discharged from therapy services. Plan of Care PT Services Indicated No
== END 2025-02-12 10:46 | disposition home or self-care (01) ==
LOC: ANHHIPT 09:45
PROVIDERS: PCP Nurse Practitioner; Visit Provider Orthopaedic Surgery
DX: Z47.1 Aftercare following joint replacement surgery (principal); Z96.651 Presence of right artificial knee joint
CPT/HCPCS: 97110; 97112; 97116; 97140; 97161; 97530; 97750